=== PATIENT | male | born 1980 | race Caucasian/White ===

== ENCOUNTER 2017-02-26 21:04 | Emergency (ER) | payer SELFPAY ==
[~2017-02-26 21:04] MED LIST: LORA-434 PO; ONDA4TAB7 PO; PANT40TA3 PO; TEMA15CA6 PO
[2017-02-26 22:27] LABS: BASO # 0.1 x10^3/uL (0.0-0.2); BASO % 1 % (0-3); EOS # 0.1 x10^3/uL (0.0-0.7); EOS % 1 % (0-3); HEMATOCRIT 35.6 % (39.0-53.0); HEMOGLOBIN 11.5 g/dL (13.0-17.5); LYMPH # 1.6 x10^3/uL (1.0-4.8); LYMPH % 19 % (24-48); MEAN CORPUSCULAR HEMOGLOBIN 26 pg (25-35); MEAN CORPUSCULAR HGB CONC 32 g/dL (31-37); MEAN CORPUSCULAR VOLUME 79 fL (79-100); MONO % 11 % (0-9); NEUT # 6.1 x10^3uL (1.8-7.7); NEUT % 68 % (31-73); PLATELET COUNT 223 x10^3/uL (140-400); RED BLOOD COUNT 4.51 x10^6/uL (4.30-5.70); RED CELL DISTRIBUTION WIDTH 20.7 % (11.5-14.5); WHITE BLOOD COUNT 8.9 x10^3/uL (4.0-11.0)
[2017-02-26] MEDS ORDERED: IV NORMAL SALINE 1,000ML 1,000 ML IV SCH (22:30)
[2017-02-26 22:35] LABS: AMPHETAMINE/METHAMPHETAMINE NEG (NEG); BARBITURATES NEG (NEG); BENZODIAZEPINES NEG (NEG); CANNABINOIDS POS (NEG); COCAINE NEG (NEG); METHADONE NEG (NEG); OPIATES NEG (NEG); PHENCYCLIDINE NEG (NEG)
[2017-02-26 22:38] LABS: ALBUMIN 3.5 g/dL (3.4-5.0); DIRECT BILIRUBIN 0.2 mg/dL (0.0-0.2); GFR 84.5; MAGNESIUM 1.3 mg/dL (1.8-2.4); POTASSIUM 3.3 mmol/L (3.5-5.1); TOTAL BILIRUBIN 0.7 mg/dL (0.2-1.0); TOTAL PROTEIN 8.4 g/dL (6.4-8.2)
[2017-02-26 22:55] LABS: BILIRUBIN,URINE NEG (NEG); CLARITY,URINE CLEAR; COLOR,URINE YELLOW; GLUCOSE,URINE NEG (NEG); NITRITE,URINE NEG (NEG); UROBILINOGEN,URINE 2 mg/dL (0.2 mg/dL)
[2017-02-26 22:56] LABS: BACTERIA,URINE FEW /HPF (0-FEW); SQUAMOUS EPITHELIAL CELL,UR MANY /LPF; YEAST,URINE PRESENT /HPF
--- NOTE | 2017-02-26 23:02 | RAD ---
CT HEAD PQRS STATEMENT: One or more of the following in the visualized dose reduction techniques were utilized for this study: 1. Automatic exposure control, 2. Adjustment of the mA and/or kV according to patient size, 3. Use of iterative reconstruction technique INDICATION: 766185.001 Seizure activity, loss of consciousness, weakness. No priors. TECHNIQUE: 5 mm contiguous axial images were obtained from the skull base to the vertex in both bone and soft tissue algorithm. FINDINGS: No abnormal attenuation within the brain parenchyma. No evidence of intracranial hemorrhage. No extra-axial fluid collections. No mass effect or midline shift. Ventricular size is appropriate. Basal cisterns are patent. No fractures identified.Guzman-white differentiation is preserved.Globes and orbits are within normal limits. Paranasal sinuses and mastoid air cells are clear. IMPRESSION: No acute intracranial abnormality. Electronically signed by: Israel Lopez MD (02/26/2017 10:58 PM) [facility]
[2017-02-26 23:12] LABS: ANISOCYTOSIS MOD; PLT ESTIMATE ADEQUATE (ADEQUATE)
[2017-02-26] MEDS ORDERED: LORA2TAB89 PO (23:57)
--- NOTE | 2017-02-26 23:58 | PHYS DOC ---
Past History Past Medical History: Other Past Surgical History: Other Alcohol Use: Occasionally Drug Use: None Adult General Chief Complaint Chief Complaint: SEIZURE HPI HPI Patient is a 36-year-old male who presents with complaint of a seizure episode. Patient was brought to the emergency department accompanied by his father who witnessed the episode. He states that the patient was lying down at rest when suddenly he started having convulsions. Patient has had no previous history of seizures per the patient and patient's father. He states that the convulsion activity lasted possibly up to 10 minutes. He states that he was able to help the patient "come to." He states that he was disoriented but was answering questions. By the time that the father brought the patient to the emergency department the patient was mentating at baseline mental status. Patient has had history of pancreatitis secondary to chronic heavy alcohol use. The patient does admit that he has recently been cutting down on his alcohol consumption over the past few weeks. Patient denies any symptoms of anxiety or agitation at this time. Patient denies any complaints. Review of Systems Review of Systems Constitutional: Denies fever or chills [] Eyes: Denies change in visual acuity, redness, or eye pain [] HENT: Denies nasal congestion or sore throat [] Respiratory: Denies cough or shortness of breath [] Cardiovascular: Denies chest pain or edema [] GI: Denies abdominal pain, nausea, vomiting, bloody stools or diarrhea [] : Denies dysuria or hematuria [] Musculoskeletal: Denies back pain or joint pain [] Integument: Denies rash or skin lesions [] Neurologic: Denies headache, focal weakness or sensory changes [] Current Medications Current Medications Current Medications Medications (Trade) Dose Ordered Sig/Cosmo Start Time Stop Time Status Last Admin Dose Admin Sodium Chloride 1,000 ml @ 1,000 mls/hr Q1H 02/26/17 22:30 02/26/17 23:29 DC 02/26/17 22:44 1,000 MLS/HR Allergies Allergies Allergies Coded Allergies Type Severity Reaction Last Updated Verified amoxicillin Allergy Intermediate 02/17/15 Yes clavulanic acid Allergy Intermediate 02/17/15 Yes I S O L A T I O N *CONTACT* Allergy Unknown 02/22/15 No Physical Exam Physical Exam Constitutional: Alert, afebrile, no acute distress. [] HENT: Normocephalic, atraumatic, bilateral external ears normal, oropharynx moist, no oral exudates, nose normal. [] Eyes: PERRLA, EOMI, conjunctiva normal, no discharge. [] Neck: Normal range of motion, no tenderness, supple, no stridor. [] Cardiovascular:Heart rate regular rhythm, no murmur [] Lungs & Thorax: Bilateral breath sounds clear to auscultation [] Abdomen: Bowel sounds normal, soft, no tenderness, no masses, no pulsatile masses. [] Skin: Warm, dry, no erythema, no rash. [] Back: No tenderness, no CVA tenderness. [] Extremities: No tenderness, no cyanosis, no clubbing, ROM intact, no edema. [] Neurologic: Alert and oriented X 3, normal motor function, normal sensory function, no focal deficits noted. [] Current Patient Data Vital Signs Vital Signs Date Time Temp Pulse Resp B/P (MAP) Pulse Ox O2 Delivery O2 Flow Rate FiO2 02/26/17 21:15 99.2 88 20 100 Room Air Lab Results Laboratory Tests Test 02/26/17 21:25 02/26/17 21:30 Urine Collection Type Unknown Urine Color Yellow Urine Clarity Clear Urine pH 7.0 Urine Specific [place] >=1.030 Urine Protein >100 mg/dl (NEG-TRACE) Urine Glucose (UA) Neg mg/dL (NEG) Urine Ketones (Stick) Neg mg/dL (NEG) Urine Blood Trace (NEG) Urine Nitrite Neg (NEG) Urine Bilirubin Neg (NEG) Urine Urobilinogen Dipstick 2 mg/dL (0.2 mg/dL) Urine Leukocyte Esterase Neg (NEG) Urine RBC 3-5 /HPF (0-2) Urine WBC 11-20 /HPF (0-4) Urine Squamous Epithelial Cells Many /LPF Urine Bacteria Few /HPF (0-FEW) Urine Yeast Present /HPF White Blood Count 8.9 x10^3/uL (4.0-11.0) Red Blood Count 4.51 x10^6/uL (4.30-5.70) Hemoglobin 11.5 g/dL (13.0-17.5) L Hematocrit 35.6 % (39.0-53.0) L Mean Corpuscular Volume 79 fL (79-100) Mean Corpuscular Hemoglobin 26 pg (25-35) Mean Corpuscular Hemoglobin Concent 32 g/dL (31-37) Red Cell Distribution Width 20.7 % (11.5-14.5) H Platelet Count 223 x10^3/uL (140-400) Neutrophils (%) (Auto) 68 % (31-73) Lymphocytes (%) (Auto) 19 % (24-48) L Monocytes (%) (Auto) 11 % (0-9) H Eosinophils (%) (Auto) 1 % (0-3) Basophils (%) (Auto) 1 % (0-3) Neutrophils # (Auto) 6.1 x10^3uL (1.8-7.7) Lymphocytes # (Auto) 1.6 x10^3/uL (1.0-4.8) Monocytes # (Auto) 1.0 x10^3/uL (0.0-1.1) Eosinophils # (Auto) 0.1 x10^3/uL (0.0-0.7) Basophils # (Auto) 0.1 x10^3/uL (0.0-0.2) Platelet Estimate Adequate (ADEQUATE) Anisocytosis Mod Sodium Level 135 mmol/L (136-145) L Potassium Level 3.3 mmol/L (3.5-5.1) L Chloride Level 95 mmol/L (98-107) L Carbon Dioxide Level 26 mmol/L (21-32) Anion Gap 14 (6-14) Blood Urea Nitrogen 8 mg/dL (8-26) Creatinine 1.0 mg/dL (0.7-1.3) Estimated GFR (Cockcroft-Gault) 84.5 Glucose Level 101 mg/dL (70-99) H Calcium Level 9.0 mg/dL (8.5-10.1) Magnesium Level 1.3 mg/dL (1.8-2.4) L Total Bilirubin 0.7 mg/dL (0.2-1.0) Direct Bilirubin 0.2 mg/dL (0.0-0.2) Aspartate Amino Transferase (AST) 24 U/L (15-37) Alanine Aminotransferase (ALT) 18 U/L (16-63) Alkaline Phosphatase 148 U/L (46-116) H Total Protein 8.4 g/dL (6.4-8.2) H Albumin 3.5 g/dL (3.4-5.0) Urine Opiates Screen Neg (NEG) Urine Methadone Screen Neg (NEG) Urine Barbiturates Neg (NEG) Urine Phencyclidine Screen Neg (NEG) Urine Amphetamine/Methamphetamine Neg (NEG) Urine Benzodiazepines Screen Neg (NEG) Urine Cocaine Screen Neg (NEG) Urine Cannabinoids Screen Pos (NEG) Ethyl Alcohol Level < 10 mg/dL (0-10) Urine Ethyl Alcohol Neg (NEG) EKG EKG Not performed [] Radiology/Procedures Radiology/Procedures [address] [address] IMAGING REPORT Signed PATIENT: KELSEY MATIAS ACCOUNT: [id number] : 1980 LOCATION: ER AGE: 36 SEX: M EXAM STATUS: REG ER ORD. PHYSICIAN: RICHAR CARREON MD REASON: seizure PROCEDURE: CT HEAD WO CONTRAST CT HEAD PQRS STATEMENT: One or more of the following in the visualized dose reduction techniques were utilized for this study: 1. Automatic exposure control, 2. Adjustment of the mA and/or kV according to patient size, 3. Use of iterative reconstruction technique INDICATION: 882113.001 Seizure activity, loss of consciousness, weakness. No priors. TECHNIQUE: 5 mm contiguous axial images were obtained from the skull base to the vertex in both bone and soft tissue algorithm. FINDINGS: No abnormal attenuation within the brain parenchyma. No evidence of intracranial hemorrhage. No extra-axial fluid collections. No mass effect or midline shift. Ventricular size is appropriate. Basal cisterns are patent. No fractures identified.Guzman-white differentiation is preserved.Globes and orbits are within normal limits. Paranasal sinuses and mastoid air cells are clear. IMPRESSION: No acute intracranial abnormality. Electronically signed by: Israel Lopez MD (02/26/2017 10:58 PM) [facility] DICTATED AND SIGNED BY: ISRAEL LOPEZ MD DATE: 02/26/17 5770 CC: RICHAR CARREON MD; PCP,NO ~ [] Course & Med Decision Making Course & Med Decision Making Pertinent Labs and Imaging studies reviewed. (See chart for details) Patient's lab workup and imaging in the emergency department were unremarkable. Patient was observed in the emergency department for 2-1/2 hours with no further seizure activity. Spoke with a patient regarding possible causes for seizure including recent decrease in alcohol consumption. Recommended that the patient follow-up with Dr. Moya of neurology in one week for reevaluation and need for outpatient EEG testing. Advised return emergency department for any further seizure activity. Patient voiced understanding and in agreement with treatment plan. Dragon Disclaimer Dragon Disclaimer This chart was dictated in whole or in part using Voice Recognition software in a busy, high-work load, and often noisy Emergency Department environment. It may contain unintended and wholly unrecognized errors or omissions. Departure Departure: Impression: Primary Impression: Seizure Disposition: HOME, SELF-CARE Condition: GOOD Referrals: PCPMEET (PCP) Norm MOYA MD Patient Instructions: Seizure, Adult Additional Instructions: Your lab work showed no significant abnormalities today. The cause of your seizure episode is not clear at this time. It is recommended that you follow-up with Dr. Moya of neurology in one week for evaluation and EEG testing. Return to the emergency department for any additional seizure episodes. Scripts Lorazepam (ATIVAN) 2 Mg Tablet 2 MG PO TID Y for ANXIETY / AGITATION, #30 TAB Prov: RICHAR CARREON MD 02/26/17 RICHAR CARREON MD Feb 26, 2017 23:58
[2017-02-27 00:15] VITALS: BP 138/91
== END 2017-02-27 00:15 | disposition home or self-care (01) ==
LOC: ER 21:04
DX: R56.9 Unspecified convulsions (principal); Z88.1 Allergy status to other antibiotic agents; Z91.041 Radiographic dye allergy status
CPT/HCPCS: 36415; 70450; 80048; 80076; 80305; 80320; 81001; 83735; 85008; 85027; 87086; 96360; G0480; G0481; 99285-25; J7030

== ENCOUNTER 2017-03-07 13:47 | Emergency (ER) | payer SELFPAY ==
[~2017-03-07 13:47] MED LIST changes: +LORA2TAB89 PO
[2017-03-07 14:25] VITALS: BP 119/84
--- NOTE | 2017-03-07 14:27 | PHYS DOC ---
Past History Past Medical History: Alcoholism, Pancreatitis Past Surgical History: No Surgical History Alcohol Use: Heavy Drug Use: None Adult General Chief Complaint Chief Complaint: SEIZURE HPI HPI Patient is a 36 year old M who presents with a seizure. This seizure was not witnessed. Enrique states that he is unsure of any details regarding the seizure. He states that afterwards he did feel muscle soreness and mild fatigue. He did have have any injury. He is a daily drinker of about 1-2 pints of liquor. His last drink was 1 pint last night. This event happened around noon, approximally 2hrs prior to arrival. He did have a witnessed seizure about 1 week ago which was his first. He was seen in the ED with a thorough work up that was negative. He was advised to follow up with neurology which he has not been able to do a yet. He has not called to make an appointment. Review of Systems Review of Systems Constitutional: Denies fever or chills [] Eyes: Denies change in visual acuity, redness, or eye pain [] HENT: Denies nasal congestion or sore throat [] Respiratory: Denies cough or shortness of breath [] Cardiovascular: No additional information not addressed in HPI [] GI: Denies abdominal pain, nausea, vomiting, bloody stools or diarrhea [] : Denies dysuria or hematuria [] Musculoskeletal: Denies back pain or joint pain [] Integument: Denies rash or skin lesions [] Neurologic: Denies headache, focal weakness or sensory changes [] Endocrine: Denies polyuria or polydipsia [] Family History Family History Paternal Uncle has seizure disorder Current Medications Current Medications none Allergies Allergies Coded Allergies Type Severity Reaction Last Updated Verified amoxicillin Allergy Intermediate 02/17/15 Yes clavulanic acid Allergy Intermediate 02/17/15 Yes I S O L A T I O N *CONTACT* Allergy Unknown 02/22/15 No Physical Exam Physical Exam Constitutional: Well developed, well nourished, no acute distress, non-toxic appearance. [] HENT: Normocephalic, atraumatic, bilateral external ears normal, oropharynx moist, no oral exudates, nose normal. [] Eyes: PERRLA, EOMI, conjunctiva normal, no discharge. [] Neck: Normal range of motion, no tenderness, supple, no stridor. [] Cardiovascular:Heart rate regular rhythm, no murmur [] Lungs & Thorax: Bilateral breath sounds clear to auscultation [] Abdomen: Bowel sounds normal, soft, no tenderness, no masses, no pulsatile masses. [] Skin: Warm, dry, no erythema, no rash. [] Back: No tenderness, no CVA tenderness. [] Extremities: No tenderness, no cyanosis, no clubbing, ROM intact, no edema. [] Neurologic: Alert and oriented X 3, normal motor function, normal sensory function, no focal deficits noted. [] Psychologic: Affect normal, judgement normal, mood normal. [] Current Patient Data Vital Signs Vital Signs Date Time Temp Pulse Resp B/P (MAP) Pulse Ox O2 Delivery O2 Flow Rate FiO2 03/07/17 14:00 97.8 87 20 100 Room Air Lab Results Labs were reviewed Radiology/Procedures Radiology/Procedures Imaging was reviewed Course & Med Decision Making Course & Med Decision Making Pertinent Labs and Imaging studies reviewed. (See chart for details) Labs and imaging were declined. Enrique states that he does not have insurance and can not afford it. He was advised that finances should not be a concern when it comes to his health. He verbalizes understanding and continues to decline any work up. His father was present Dragon Disclaimer Dragon Disclaimer This chart was dictated in whole or in part using Voice Recognition software in a busy, high-work load, and often noisy Emergency Department environment. It may contain unintended and wholly unrecognized errors or omissions. Departure Departure: Impression: Primary Impression: Seizure Disposition: 01 HOME, SELF-CARE Referrals: PCP,NO (PCP) Patient Instructions: Seizure, Adult Additional Instructions: Enrique was seen in the ED for a possible seizure. No emergency medical condition was found during the history and physical exam. He was advised to follow up with his primary care doctor or neurologist as soon as possible for further management. He was also advised to return to the ED if he develops new or worsening symptoms. NURIS VILLALOBOS MD Mar 07, 2017 14:27
== END 2017-03-07 14:35 | disposition home or self-care (01) ==
LOC: ER 13:47
DX: R56.9 Unspecified convulsions (principal); F10.20 Alcohol dependence, uncomplicated; Z88.1 Allergy status to other antibiotic agents; Z91.041 Radiographic dye allergy status
CPT/HCPCS: 99281

== ENCOUNTER 2017-03-07 19:27 | Inpatient (IN) | payer SELFPAY ==
[~2017-03-07] VITALS: Ht 167.6 cm; Wt 61.9 kg
[2017-03-07] MEDS ORDERED: IV NORMAL SALINE 1,000ML 1,000 ML IV ONE (19:45)
[2017-03-07 20:01] LABS: HEMOGLOBIN ISTAT 12.6 gm/dL
[2017-03-07] MEDS ORDERED: ACETAMINOPHEN 325 MG TABLET PO PRN (21:15)
[2017-03-07] MEDS ORDERED: MORPHINE SULFATE 2 MG/ML DISP.SYRIN. IV PRN (21:15)
[2017-03-07] MEDS ORDERED: ONDANSETRON PF 4 MG/2 ML VIAL. IV PRN (21:15)
[2017-03-07] MEDS ORDERED: cloNIDine HCL 0.1 MG TABLET PO PRN (21:15)
[2017-03-07 21:35] VITALS: BP 145/93
--- NOTE | 2017-03-07 21:35 | NUR ---
Pt was admitted to icu bed 5, admitting diagnosis is etoh withdrawl with seizures. admission process and assessment completed, pt and family oriented to icu unit and policies. The following information was found during admission assessment: the patient normally drinks 2 pints of vodka daily. He decided to stop drinking recently, he cut down abruptly, current home situation is a one bedroom apt, his parents, himself and his son all staying there. His father is also a alcoholic and question of substance abuse, mother states she only has anxiety and panic disorders. Both parents smelled of cigarettes and alcohol.
[2017-03-07] MEDS ORDERED: MVI, ADULT NO.4 WITH VIT K 10 ML, THIAMINE 100 MG, FOLIC ACID 1 MG in IV NORMAL SALINE ... IV SCH ×4 (22:00)
[2017-03-07 22:25] LABS: BASO # 0.1 x10^3/uL (0.0-0.2); BASO % 1 % (0-3); EOS # 0.2 x10^3/uL (0.0-0.7); EOS % 1 % (0-3); HEMATOCRIT 30.2 % (39.0-53.0); HEMOGLOBIN 9.7 g/dL (13.0-17.5); LYMPH # 1.6 x10^3/uL (1.0-4.8); LYMPH % 12 % (24-48); MEAN CORPUSCULAR HEMOGLOBIN 25 pg (25-35); MEAN CORPUSCULAR HGB CONC 32 g/dL (31-37); MEAN CORPUSCULAR VOLUME 79 fL (79-100); MONO % 8 % (0-9); NEUT # 10.6 x10^3uL (1.8-7.7); NEUT % 79 % (31-73); PLATELET COUNT 208 x10^3/uL (140-400); RED BLOOD COUNT 3.84 x10^6/uL (4.30-5.70); RED CELL DISTRIBUTION WIDTH 18.9 % (11.5-14.5); WHITE BLOOD COUNT 13.6 x10^3/uL (4.0-11.0)
[2017-03-07 22:26] LABS: BARBITURATES NEG (NEG); BENZODIAZEPINES NEG (NEG); CANNABINOIDS POS (NEG); COCAINE NEG (NEG); METHADONE NEG (NEG); OPIATES NEG (NEG); PHENCYCLIDINE NEG (NEG)
[2017-03-07 22:27] LABS: AMPHETAMINE/METHAMPHETAMINE NEG (NEG)
[2017-03-07 22:30] LABS: ALBUMIN 3.2 g/dL (3.4-5.0); ALBUMIN/GLOBULIN RATIO 0.8 (1.0-1.7); CALCIUM 8.3 mg/dL (8.5-10.1); CREATININE 0.7 mg/dL (0.7-1.3); GFR 127.6; MAGNESIUM 1.5 mg/dL (1.8-2.4); POTASSIUM 3.9 mmol/L (3.5-5.1); TOTAL BILIRUBIN 0.8 mg/dL (0.2-1.0); TOTAL PROTEIN 7.2 g/dL (6.4-8.2)
[2017-03-07 22:37] LABS: BACTERIA,URINE 0 /HPF (0-FEW); BILIRUBIN,URINE NEG (NEG); CLARITY,URINE CLEAR; COLOR,URINE YELLOW; GLUCOSE,URINE NEG (NEG); NITRITE,URINE NEG (NEG); SQUAMOUS EPITHELIAL CELL,UR FEW /LPF; UROBILINOGEN,URINE 1 mg/dL (0.2 mg/dL)
[2017-03-07 22:38] LABS: HYALINE CASTS, URINE FEW /HPF
[2017-03-07] MEDS ORDERED: chlordiazePOXIDE HCL 25 MG CAPSULE PO PRN ×2 (23:00)
[2017-03-07] MEDS ORDERED: diphenhydrAMINE 50 MG/ML VIAL IVP PRN (23:00)
[2017-03-07] MEDS ORDERED: HALOPERIDOL LACT 5 MG/ML VIAL. IM PRN (23:00)
[2017-03-07 23:08] VITALS: BP 127/87
[2017-03-07] MEDS: IV NORMAL SALINE 1,000ML 1,000 ML IV SCH (23:09)
[2017-03-07] MEDS ORDERED: MAGNESIUM SULFATE 2GM 50 ML IV ONE (23:30)
[2017-03-08] VITALS (15 sets, daily range): BP systolic 103–128; BP diastolic 74–90
--- NOTE | 2017-03-08 01:22 | PHYS DOC ---
Past History Past Medical History: Alcoholism, Pancreatitis Past Surgical History: No Surgical History Alcohol Use: Heavy Drug Use: None Adult General Chief Complaint Chief Complaint: SEIZURE HPI HPI Patient is a 36 year old male who presents with seizure. Patient presents via EMS from home, reportedly father witnessed episode of staring into space & shaking, unknown duration, patient minimally responsive. Denies tongue biting, bowel/bladder incontinence, fall or injury. He was postictal when EMS arrived. Patient seen here earlier today after unwitnessed seizure. He is a chronic daily drinker usually 1-2 pints of hard liquor daily, last drink was 24 hours ago. last week he had a seizure after attempting to detox from EtOH. At that time he had head CT & ER evaluation, ultimately discharged home with neurology follow up. Denies use of drugs. Review of Systems Review of Systems Constitutional: Denies fever or chills Eyes: Denies change in visual acuity HENT: Denies nasal congestion or sore throat Respiratory: Denies cough or shortness of breath Cardiovascular: Denies chest pain or edema GI: Denies abdominal pain, nausea, vomiting Musculoskeletal: Denies back pain or joint pain Integument: Denies rash or skin lesions Neurologic: Reports seizure. Denies headache, focal weakness or sensory changes Current Medications Current Medications Current Medications Medications (Trade) Dose Ordered Sig/Cosmo Start Time Stop Time Status Last Admin Dose Admin Acetaminophen (Tylenol) 650 mg PRN Q4HRS PRN 03/07/17 21:15 03/08/17 21:14 Clonidine HCl (Catapres) 0.1 mg PRN Q1HR PRN 03/07/17 21:15 Diazepam (Valium) 10 mg PRN Q5MIN PRN 03/07/17 21:15 Morphine Sulfate (Morphine 2mg Syringe) 2 mg PRN Q2HR PRN 03/07/17 21:15 03/08/17 21:14 Ondansetron HCl (Zofran) 4 mg PRN Q4HRS PRN 03/07/17 21:15 03/08/17 21:14 Sodium Chloride 1,000 ml @ 125 mls/hr Q8H 03/07/17 21:14 03/08/17 21:13 03/07/17 23:09 125 MLS/HR Allergies Allergies Allergies Coded Allergies Type Severity Reaction Last Updated Verified amoxicillin Allergy Intermediate 02/17/15 Yes clavulanic acid Allergy Intermediate 02/17/15 Yes I S O L A T I O N *CONTACT* Allergy Unknown 02/22/15 No Physical Exam Physical Exam Constitutional: Well developed, well nourished, no acute distress, non-toxic appearance. HENT: Normocephalic, atraumatic, bilateral external ears normal, oropharynx moist, nose normal. No bite georges to tongue. Eyes: PERRLA, EOMI, conjunctiva normal, no discharge. Neck: supple, no stridor. No meningismus or C-spine tenderness. Cardiovascular: Tachycardic, regular, no murmurs, no edema. Lungs & Thorax: LCTAB, no wheezing, no respiratory distress. Abdomen: soft, nontender, nondistended. Skin: Warm, dry, no erythema, no rash. Back: No tenderness. Extremities: No tenderness, no edema. Neurologic: Alert and oriented X 3, cranial nerves II through XII grossly intact , symmetric strength and sensation to upper and lower extremities, no focal deficits noted. Psychologic: Flat affect Current Patient Data Vital Signs Vital Signs Date Time Temp Pulse Resp B/P (MAP) Pulse Ox O2 Delivery O2 Flow Rate FiO2 03/08/17 01:10 81 18 120/84 (96) Room Air 03/07/17 21:35 98.4 100 Lab Results Laboratory Tests Test 03/07/17 19:55 03/07/17 21:50 03/07/17 22:02 POC Hemoglobin 12.6 gm/dL POC Hematocrit 37 % POC Sodium 131 mmol/L (135-145) L POC Potassium 4.0 mmol/L (3.5-5.0) POC Chloride 94 mmol/L (98-110) L POC Total CO2 22 mmol/L (23-32) L Anion Gap 20 mmol/L (6-14) H 7 (6-14) POC Blood Urea Nitrogen 4 mg/dL (8-26) L POC Creatinine 0.5 mg/dL (0.5-1.4) Glucose Level 88 mg/dL (60-99) 83 mg/dL (70-99) POC Ionized Calcium ([place]) 1.16 mmol/L (1.13-1.32) Urine Collection Type Unknown Urine Color Yellow Urine Clarity Clear Urine pH 7.5 Urine Specific [place] 1.015 Urine Protein Trace (NEG-TRACE) Urine Glucose (UA) Neg mg/dL (NEG) Urine Ketones (Stick) Neg mg/dL (NEG) Urine Blood Trace (NEG) Urine Nitrite Neg (NEG) Urine Bilirubin Neg (NEG) Urine Urobilinogen Dipstick 1 mg/dL (0.2 mg/dL) Urine Leukocyte Esterase Neg (NEG) Urine RBC 1-2 /HPF (0-2) Urine WBC 1-4 /HPF (0-4) Urine Squamous Epithelial Cells Few /LPF Urine Bacteria 0 /HPF (0-FEW) Urine Hyaline Casts Few /HPF Urine Mucus Mod /LPF Urine Opiates Screen Neg (NEG) Urine Methadone Screen Neg (NEG) Urine Barbiturates Neg (NEG) Urine Phencyclidine Screen Neg (NEG) Urine Amphetamine/Methamphetamine Neg (NEG) Urine Benzodiazepines Screen Neg (NEG) Urine Cocaine Screen Neg (NEG) Urine Cannabinoids Screen Pos (NEG) Urine Ethyl Alcohol Neg (NEG) White Blood Count 13.6 x10^3/uL (4.0-11.0) H Red Blood Count 3.84 x10^6/uL (4.30-5.70) L Hemoglobin 9.7 g/dL (13.0-17.5) L Hematocrit 30.2 % (39.0-53.0) L Mean Corpuscular Volume 79 fL (79-100) Mean Corpuscular Hemoglobin 25 pg (25-35) Mean Corpuscular Hemoglobin Concent 32 g/dL (31-37) Red Cell Distribution Width 18.9 % (11.5-14.5) H Platelet Count 208 x10^3/uL (140-400) Neutrophils (%) (Auto) 79 % (31-73) H Lymphocytes (%) (Auto) 12 % (24-48) L Monocytes (%) (Auto) 8 % (0-9) Eosinophils (%) (Auto) 1 % (0-3) Basophils (%) (Auto) 1 % (0-3) Neutrophils # (Auto) 10.6 x10^3uL (1.8-7.7) H Lymphocytes # (Auto) 1.6 x10^3/uL (1.0-4.8) Monocytes # (Auto) 1.0 x10^3/uL (0.0-1.1) Eosinophils # (Auto) 0.2 x10^3/uL (0.0-0.7) Basophils # (Auto) 0.1 x10^3/uL (0.0-0.2) Sodium Level 130 mmol/L (136-145) L Potassium Level 3.9 mmol/L (3.5-5.1) Chloride Level 95 mmol/L (98-107) L Carbon Dioxide Level 28 mmol/L (21-32) Blood Urea Nitrogen 5 mg/dL (8-26) L Creatinine 0.7 mg/dL (0.7-1.3) Estimated GFR (Cockcroft-Gault) 127.6 BUN/Creatinine Ratio 7 (6-20) Calcium Level 8.3 mg/dL (8.5-10.1) L Magnesium Level 1.5 mg/dL (1.8-2.4) L Total Bilirubin 0.8 mg/dL (0.2-1.0) Aspartate Amino Transferase (AST) 17 U/L (15-37) Alanine Aminotransferase (ALT) 19 U/L (16-63) Alkaline Phosphatase 97 U/L (46-116) Total Protein 7.2 g/dL (6.4-8.2) Albumin 3.2 g/dL (3.4-5.0) L Albumin/Globulin Ratio 0.8 (1.0-1.7) L Ethyl Alcohol Level < 10 mg/dL (0-10) Radiology/Procedures Radiology/Procedures Reviewed imaging from initial presentation on 02/26. PROCEDURE: CT HEAD WO CONTRAST CT HEAD PQRS STATEMENT: One or more of the following in the visualized dose reduction techniques were utilized for this study: 1. Automatic exposure control, 2. Adjustment of the mA and/or kV according to patient size, 3. Use of iterative reconstruction technique INDICATION: 965715.001 Seizure activity, loss of consciousness, weakness. No priors. TECHNIQUE: 5 mm contiguous axial images were obtained from the skull base to the vertex in both bone and soft tissue algorithm. FINDINGS: No abnormal attenuation within the brain parenchyma. No evidence of intracranial hemorrhage. No extra-axial fluid collections. No mass effect or midline shift. Ventricular size is appropriate. Basal cisterns are patent. No fractures identified.Guzman-white differentiation is preserved.Globes and orbits are within normal limits. Paranasal sinuses and mastoid air cells are clear. IMPRESSION: No acute intracranial abnormality. Electronically signed by: Israel Lopez MD (02/26/2017 10:58 PM) [facility] DICTATED AND SIGNED BY: ISRAEL LOPEZ MD DATE: 02/26/17 2256[] Course & Med Decision Making Course & Med Decision Making Pertinent Labs and Imaging studies reviewed. (See chart for details) The patient presents after seizure, clinical history suggesting alcohol withdrawal. Tachycardic upon arrival, not hypertensive. Gave Valium and IV fluids. Obtained a basic metabolic panel. Patient initially refusing admission or consideration of detox. His parents arrived and ultimately he agreed that he would be admitted to the hospital if we recommended. I discussed with Dr. Song who agrees to accept for admission to the ICU. Will continue withdrawal treatment protocol. Discussed with Dr. Torres of neurology who recommends routine EEG in the AM, no need to start antiepileptic treatment at this time. The patient is being admitted in stable condition. [] Dragon Disclaimer Dragon Disclaimer This chart was dictated in whole or in part using Voice Recognition software in a busy, high-work load, and often noisy Emergency Department environment. It may contain unintended and wholly unrecognized errors or omissions. Departure Departure: Impression: Primary Impression: Alcohol withdrawal Additional Impression: Seizure Disposition: ADMITTED INPATIENT Admitting Physician: Ever Song Condition: STABLE Referrals: PCP,NO (PCP) Problem Qualifiers BJ JEAN BAPTISTE MD Mar 08, 2017 01:22
[2017-03-08] MEDS: IV NORMAL SALINE 1,000ML 1,000 ML IV SCH ×2 (04:12→11:10)
--- NOTE | 2017-03-08 06:00 | NUR ---
Patient has done well tonight. He has been up to the bathroom to void several times tonight. This morning he has had 3 episodes of gas and some diarrhea. Pt's only other complaint is a mild headache. On the CIWA scale, he had some mild anxiety upon arrival to unit. He has not required any medications tonight. No seizure activity witnessed. Spoke with mother, Didi Webb on phone this morning for update.
[2017-03-08 06:10] LABS: BASO # 0.1 x10^3/uL (0.0-0.2); BASO % 1 % (0-3); EOS # 0.3 x10^3/uL (0.0-0.7); EOS % 4 % (0-3); HEMATOCRIT 30.4 % (39.0-53.0); HEMOGLOBIN 9.8 g/dL (13.0-17.5); LYMPH # 2.1 x10^3/uL (1.0-4.8); LYMPH % 22 % (24-48); MEAN CORPUSCULAR HEMOGLOBIN 25 pg (25-35); MEAN CORPUSCULAR HGB CONC 32 g/dL (31-37); MEAN CORPUSCULAR VOLUME 79 fL (79-100); MONO # 1.3 x10^3/uL (0.0-1.1); MONO % 14 % (0-9); NEUT # 5.8 x10^3uL (1.8-7.7); NEUT % 60 % (31-73); PLATELET COUNT 209 x10^3/uL (140-400); RED BLOOD COUNT 3.85 x10^6/uL (4.30-5.70); RED CELL DISTRIBUTION WIDTH 19.4 % (11.5-14.5); WHITE BLOOD COUNT 9.7 x10^3/uL (4.0-11.0)
[2017-03-08 06:13] LABS: CALCIUM 8.1 mg/dL (8.5-10.1); CREATININE 0.7 mg/dL (0.7-1.3); GFR 127.6; POTASSIUM 3.6 mmol/L (3.5-5.1)
--- NOTE | 2017-03-08 08:05 | NUR ---
Spoke with Dr. Torres in regards to patients EEG, states it is best if we do outpatient EEG. Will set up appt of outpatient services.
[2017-03-08] MEDS ORDERED: IBUPROFEN 600 MG TABLET. PO PRN (09:00)
[2017-03-08] MEDS ORDERED: THIAMINE 100 MG in IV NORMAL SALINE 50ML 50 ML IV SCH (09:00)
--- NOTE | 2017-03-08 09:19 | NUR ---
Dr. Torres here at this time, states to set up outpatient EEG as soon as possible. Pt stable at this time.
--- NOTE | 2017-03-08 10:00 | NUR ---
Ibuprofen given due to complaints of right foot injury. States he injuried his foot during a seizure episode. Right big toe is slightly swollen and purple. Will discuss with Dr. Song in regards to patients foot.
--- NOTE | 2017-03-08 14:51 | NUR ---
Pt discharged at this time, belongings with patient. Father here to transport. Foot xray completed. Will notify if with results.
--- NOTE | 2017-03-08 14:54 | RAD ---
EXAM: Right foot 3 views. HISTORY: Right medial foot pain after injury. COMPARISON: 02/09/2007. FINDINGS: There is a nondisplaced oblique fracture of the 1st proximal phalanx. There is mild hallux valgus. Joint spaces are maintained. IMPRESSION: 1. Nondisplaced oblique fracture of the 1st proximal phalanx.
--- NOTE | 2017-03-08 15:06 | SSS ---
ADMIT DATE: 03/08/2017 HISTORY OF PRESENT ILLNESS: The patient is a 36-year-old male patient who came to the Emergency Room by emergency medical services from home. Apparently, his father witnessed an episode of staring into space and shaking of unknown duration. By the time he arrived to the Emergency Room, he was minimally responsive; however, there was no evidence of tongue biting, bowel or bladder incontinence, fall or injury, although when I questioned him, he did complain that he hit his right foot and in fact his big toe is swollen and bruised and he has a limp when he attempts to walk. He apparently was seen in the Emergency Room earlier on the day for after an unwitnessed seizure. He is a chronic daily drinker, usually takes 1-2 pints of hard liquor daily and his last drink was about 24 hours prior to arrival to the Emergency Room. Last week, he has had a seizure after attempting to detox from alcohol as his son is coming to be with him this summer time and he tried to cut down on his alcohol drinking. He apparently had had a CT scan and was evaluated again in the Emergency Room and ultimately discharged home with the Neurology followup. As he has had multiple episodes of seizures, a decision was made to admit him for observation in the ICU and to consult Dr. Torres for further evaluation and treatment. PAST MEDICAL HISTORY: Significant for alcoholism and an episode of alcohol-induced pancreatitis. He has had a cyst removed from right forehead when he was younger. FAMILY HISTORY: Unremarkable. SOCIAL HISTORY: He is , has 1 son. He smokes a pack a day. Drinks anything from 6 packs of beer to a fifth of vodka. 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 ALLERGIES: He has no known drug allergies. CURRENT MEDICATIONS: He is not currently on any medication. FAMILY HISTORY: Unremarkable. His father is still alive at age of 57, has no known medical problems. Mother is alive at age of 55 and has no known medical problem. PHYSICAL EXAMINATION: GENERAL: On arrival to the Emergency Room, he was lethargic, but arousable, slightly pale, but no jaundice, cyanosis, lymphadenopathy or thyromegaly. No jugular venous distention. No lower limb edema. VITAL SIGNS: His heart rate was 103, blood pressure was 128/98, temperature was 98.1, respiratory rate was 18 and oxygen saturation was 97% on room air. HEENT: Showed normocephalic, atraumatic. NECK: Supple. HEART: Showed normal first and second heart sounds with no gallop, rub or murmur. CHEST: Clear to auscultation. No crepitation or rhonchi. ABDOMEN: Distended, soft, nontender. No guarding or rigidity. No organomegaly. Hernial orifices intact. Bowel sounds normal. NEUROLOGIC: Lethargic but arousable. All cranial nerves intact. EXTREMITIES: He moves extremities without difficulty. LABORATORY DATA: He has had lab work done in the Emergency Room which showed his white cell count to be 13,600, hemoglobin 9.7, hematocrit 30, MCV 79, and platelet count 208,000. His chemistry showed a serum sodium 131, potassium 4, chloride 94, bicarbonate 28, anion gap of 20, BUN 4, creatinine was 0.5, estimated GFR was 88 mL per minute. His glucose was 88, calcium was 8.3, magnesium was 1.5. Total bilirubin, AST, ALT, alkaline phosphatase were normal. Total protein was 7.2, albumin 3.2. His urinalysis was essentially unremarkable and urine tox screen was positive for cannabinoids. He was admitted to the ICU, was started on alcohol withdrawal protocol, although according to nursing staff did not require any treatment, did not display any evidence of delirium tremens. He was seen in consultation by Dr. Torres who recommended that the patient can be safely discharged to follow him as an outpatient to do an EEG as an outpatient and no treatment was recommended for seizures. His repeat labs showed that his white cell count is down to 9700, hemoglobin 9.8, hematocrit 30.4, MCV 79 and platelet count of 209,000 with normal manual differential. His chemistry showed a serum sodium 135, potassium 3.6, chloride 101, bicarbonate 24, anion gap of 10, BUN 5, creatinine 0.7, estimated GFR was 127 mL per minute. His glucose was 78 and calcium was 1.1. Magnesium was 1.9. FINAL DISCHARGE DIAGNOSES: Alcohol withdrawal seizures and chronic alcohol abuse. He did have also hyponatremia that has resolved. Serum sodium has risen from 131 to 135. Hypomagnesemia, resolved. His serum magnesium went up from 1.5 to 1.9. The patient was counseled about alcoholism and was advised to follow up with Dr. Torres for an outpatient EEG. LA[place] NEUMANN MD DR: SEAMUS/xavi JOB#: [id number] / [id number]
--- NOTE | 2017-03-08 16:08 | NUR ---
Notified patients family of patients results. Pts phone number was not working at this time. Explained patient will need to see a specialist due to fracture of 1st phalanx.
--- NOTE | 2017-03-09 02:31 | ACF ---
Admit Criteria Forms Admit Criteria Forms Admit Criteria Forms ALCOHOL AND PSYCHOACTIVE SUBSTANCE WITHDRAWAL Clinical Indications for Inpatient Care (Place ' X' for any and all applicable criteria): Ongoing inpatient care may be indicated for substance withdrawal[B][C] with ANY ONE of the following(1)(2)(3)(4)(21): [ ]I. Delirium due to alcohol or sedative[D] withdrawal is present. [X]II. Marked signs of withdrawal are present as indicated by ANY ONE of the following(15)(22)(23) [ ]a) Heart rate greater than 120 beats per minute is present. [ ]b) Severe vomiting is present (eg, precludes maintenance of oral hydration). [ ]c) Grossly visible tremor is present. [ ]d) Profuse perspiration is present. [ ]e) Temperature greater than 101 degrees F (38.3 degrees C) is present. [X]f) Other signs of severe withdrawal are present (eg, Altered mental status ) [ ]g) Severe withdrawal identified by standardized assessment score[A] [X]III. Signs of withdrawal that require continued inpatient treatment as indicated by ANY ONE of the following(15)(22)(23): [ ]a) Inadequate response to pharmacotherapy (eg, benzodiazepines) [X]b) Outpatient or lower level of care is not feasible or appropriate (eg, unavailable or inappropriate to patient condition or treatment history). [ ]IV. Withdrawal signs with high-risk indicator are present as manifested by ALL of the following[A](15)(22)(23) [ ]a) Signs of withdrawal are present as indicated by ANY ONE of the following: [ ]i. Tachycardia is present. [ ]ii. Nausea or vomiting is present. [ ]iii. Tremor is present. [ ]iv. Increased perspiration is present. [ ]v. Other signs of withdrawal are present. [ ]vi. Withdrawal identified by standardized assessment score [A] [ ]b) Elevated risk due to historical or comorbid factor is present as indicated by ANY ONE of the following: [ ]i. History of delirium due to withdrawal is present. [ ]ii. History of seizures due to withdrawal is present.[E] [ ]iii. Intrinsic seizure disorder (epilepsy) is present. [ ]iv. Patient is . [ ]v. Other significant medical history (eg, severe cardiac disease) is present, which is assessed to be at risk for destabilization due to withdrawal. [ ]V. Serious electrolyte abnormalities (eg, hyponatremia, hypokalemia, hypophosphatemia) requiring correction performable only in inpatient setting(6)(25) [ ]. Severe hypoglycemia requiring glucose infusions performable only in inpatient setting(6) [ ]VII. Drug toxicity or instability, such as Altered mental status, respiratory depression, or arrhythmias, that requires inpatient care [ ]VIII. Danger judged unmanageable at lower level of care because of ANY ONE of the following [ ]a) Danger to self [ ]b) Danger to others [ ]c) Grave disability (eg, inability to perform self-care necessary at lower level of care) The original [employer] content created by [employer] has been revised. The portions of the content which have been revised are identified through the use of italic text or in bold. [facility] has neither reviewed nor approved the modified material. All other unmodified content is copyright [employer]. Please see references footnoted in the original [employer] edition 2016 ANGELICA ACOSTA Mar 09, 2017 02:31
== END 2017-03-08 14:40 | disposition home or self-care (01) | DRG 897 ==
LOC: ER 19:27 → ICU 21:16
PROVIDERS: ADMIT Internal Medicine; ATTEND Internal Medicine
DX: F10.239 Alcohol dependence with withdrawal, unspecified (principal); E87.1 Hypo-osmolality and hyponatremia; E83.42 Hypomagnesemia; F17.210 Nicotine dependence, cigarettes, uncomplicated; R56.9 Unspecified convulsions; Z88.1 Allergy status to other antibiotic agents; Z88.8 Allergy status to other drugs, medicaments and biological substances
CPT/HCPCS: 36415; 73630; 80047; 80048; 80053; 81001; 83735; 85027; 87641; 96361; 96374; G0480; G0481; J3475; 99285-25; J7030

== ENCOUNTER 2017-08-23 10:31 | Inpatient (IN) | payer SELFPAY ==
[~2017-08-23] VITALS: Ht 167.6 cm; Wt 64.9 kg
--- NOTE | 2017-08-23 10:53 | PHYS DOC ---
Past History Past Medical History: Alcoholism, Pancreatitis, Seizure Past Surgical History: No Surgical History Alcohol Use: Heavy Drug Use: None Adult General Chief Complaint Chief Complaint: SEIZURE HPI HPI 36 -year-old male patient brought in by EMS because of seizures. Patient had history of alcohol abuse and previous episodes of seizure did not have any alcohol for the last 4 days because of financial problems and had a witnessed seizure at home with falling on his face and tonic clonic seizure activity that lasted at least for 4 minutes and had postictal condition after his seizure. Patient was alert and oriented at arrival to ER. Patient complains of mild pain in his face without other problem. Patient denies using. Patient had hospitalization 1 year ago with alcohol withdrawal seizure and recommended follow with neurologist but did not follow-up with the neurologist. He is up-to- date with his tetanus immunization. Review of Systems Review of Systems Constitutional: Denies fever or chills [] Eyes: Denies change in visual acuity, redness, or eye pain [] HENT: Denies nasal congestion or sore throat [] Respiratory: Denies cough or shortness of breath [] Cardiovascular: No additional information not addressed in HPI [] GI: Denies abdominal pain, nausea, vomiting, bloody stools or diarrhea [] : Denies dysuria or hematuria [] Musculoskeletal: Denies back pain or joint pain [] Integument: Denies rash or skin lesions [] Neurologic: Denies headache, focal weakness or sensory changes [] Endocrine: Denies polyuria or polydipsia [] All other systems were reviewed and found to be within normal limits, except as documented in this note. Current Medications Current Medications Current Medications Medications (Trade) Dose Ordered Sig/Cosmo Start Time Stop Time Status Last Admin Dose Admin Lorazepam (Ativan) 1 mg 1X ONCE 08/23/17 11:15 08/23/17 11:16 Sodium Chloride 1,000 ml @ 1,000 mls/hr 1X ONCE 08/23/17 11:00 08/23/17 11:59 Allergies Allergies Allergies Coded Allergies Type Severity Reaction Last Updated Verified amoxicillin Allergy Intermediate 02/17/15 Yes clavulanic acid Allergy Intermediate 02/17/15 Yes I S O L A T I O N *CONTACT* Allergy Unknown 02/22/15 No Physical Exam Physical Exam Constitutional: Well developed, well nourished, mild distress, non-toxic appearance. [] HENT: Normocephalic, right cheek contusion without abrasion, bilateral external ears normal, oropharynx moist, no oral exudates, nose normal. [] Eyes: PERRLA, EOMI, conjunctiva normal, no discharge. [] Neck: Immobilized by c-collar by EMS Cardiovascular: Normal sinus rhythm without murmur Lungs & Thorax: Bilateral breath sounds clear to auscultation [] Abdomen: Bowel sounds normal, soft, no tenderness, no masses, no pulsatile masses. [] Skin: Warm, dry, no erythema, no rash. [] Back: No tenderness, no CVA tenderness. [] Extremities: No tenderness, no cyanosis, no clubbing, ROM intact, no edema. [] Neurologic: Alert and oriented X 3, normal motor function, normal sensory function, no focal deficits noted. [] Psychologic: Affect normal, judgement normal, mood normal. [] EKG EKG [Cage interpreted by me. EKG at 1052 showed heart rate of 96, normal sinus rhythm, poor R-wave progress in anteroseptal leads, no acute ST and T wave abnormality] Radiology/Procedures Radiology/Procedures [] Course & Med Decision Making Course & Med Decision Making Pertinent Labs and Imaging studies reviewed. (See chart for details) Evaluation of patient in ER showed 36-year-old male patient brought in by EMS because of our cart withdrawal seizure. Patient was alert and oriented in ER and had c-collar placement that improved after negative CT head, facial bones and cervical spine. Patient had facial contusion without other abnormality in his exam. Dr. Torres on-call neurology was consulted at 1205 and recommended follow-up with his office for EEG and more evaluation. Patient's mother requesting admission because patient had another episode of seizures when he was discharged from hospital last time and had to come back to Hospital again. call person hospitalist Dr. Song accepted the admission at 1211.[] Dragon Disclaimer Dragon Disclaimer This electronic medical record was generated, in whole or in part, using a voice recognition dictation system. Departure Departure: Impression: Primary Impression: Alcohol withdrawal seizure Additional Impressions: Facial contusion Tobacco abuse Tobacco abuse counseling Disposition: 09 ADMITTED INPATIENT (At 1212) Admitting Physician: Ever Song Condition: IMPROVED Referrals: PCP,NO (PCP) Scripts No Active Prescriptions or Reported Meds Problem Qualifiers GLENN DARDEN MD Aug 23, 2017 10:53
[2017-08-23 10:56] LABS: BASO # 0.2 x10^3/uL (0.0-0.2); BASO % 1 % (0-3); EOS # 0.1 x10^3/uL (0.0-0.7); EOS % 1 % (0-3); HEMATOCRIT 33.6 % (39.0-53.0); HEMOGLOBIN 10.6 g/dL (13.0-17.5); LYMPH # 1.4 x10^3/uL (1.0-4.8); LYMPH % 12 % (24-48); MEAN CORPUSCULAR HEMOGLOBIN 25 pg (25-35); MEAN CORPUSCULAR HGB CONC 32 g/dL (31-37); MEAN CORPUSCULAR VOLUME 78 fL (79-100); MONO # 0.9 x10^3/uL (0.0-1.1); MONO % 8 % (0-9); NEUT # 8.8 x10^3uL (1.8-7.7); NEUT % 78 % (31-73); PLATELET COUNT 182 x10^3/uL (140-400); RED BLOOD COUNT 4.34 x10^6/uL (4.30-5.70); WHITE BLOOD COUNT 11.3 x10^3/uL (4.0-11.0)
[2017-08-23] MEDS ORDERED: IV NORMAL SALINE 1,000ML 1,000 ML IV ONE (11:00)
[2017-08-23 11:10] LABS: ALBUMIN 3.7 g/dL (3.4-5.0); CALCIUM 8.8 mg/dL (8.5-10.1); CREATININE 0.9 mg/dL (0.7-1.3); GFR 95.5; POTASSIUM 3.5 mmol/L (3.5-5.1); TOTAL BILIRUBIN 0.8 mg/dL (0.2-1.0); TOTAL PROTEIN 7.4 g/dL (6.4-8.2)
[2017-08-23] MEDS ORDERED: LORazepam 2 MG/ML VIAL IV ONE (11:15)
[2017-08-23 11:18] LABS: PLT ESTIMATE ADEQUATE (ADEQUATE)
[2017-08-23 11:19] LABS: HYPOCHROMIA SLIGHT; OVALOCYTES OCC
[2017-08-23 11:20] LABS: ANISOCYTOSIS MOD; POLYCHROMASIA SLIGHT
[2017-08-23 11:21] LABS: MICROCYTOSIS SLIGHT
--- NOTE | 2017-08-23 11:21 | RAD ---
Cervical spine CT without contrast History: Seizure, fall, bruising about the right eye Technique: Noncontrast CT imaging was performed of the cervical spine. Multiplanar images are reviewed. Exposure: One or more of the following individualized dose reduction techniques were utilized for this examination: 1. Automated exposure control 2. Adjustment of the mA and/or kV according to patient size 3. Use of iterative reconstruction technique. Comparison: None Findings: No cervical spine acute fracture is identified. Vertebral body stature is preserved. AP is alignment is within normal limits. There is mild reversal of the lordotic curvature centered about C4-5. There is very mild cervical dextroscoliosis. Intervertebral disc spaces are overall adequate. Atlanto-axial distance is within normal limits. There is appropriate alignment of lateral masses of C1 relative to C2. Occipital condylar-C1 relationship is maintained. Impression: 1. No acute cervical spine fracture is identified. Electronically signed by: Mike Villagomez MD (08/23/2017 11:18 AM) [facility]
--- NOTE | 2017-08-23 11:33 | RAD ---
CT of the head and facial bones without contrast History:SEIZURE, FALL, BRUISING OVER RIGHT EYE
NO PRIORS Technique: Standard noncontrast images are obtained. Exposure: One or more of the following individualized dose reduction techniques were utilized for this examination: 1. Automated exposure control 2. Adjustment of the mA and/or kV according to patient size 3. Use of iterative reconstruction technique. Comparison: None Head Small area of hypoattenuation identified in the left cerebellum. No evidence of acute intracranial hemorrhage, mass effect, midline shift or abnormal extra-axial fluid collection. Guzman-white matter distinction is intact. Ventricles unremarkable and symmetric Visualized orbits are unremarkable. Visualized paranasal sinuses and mastoids are clear. No acute calvarial abnormality Impression: Small hypoattenuating lesion in the left cerebellum. This may represent a small area of encephalomalacia, and is probably not an acute process. However, considering the patient's young age, significance is uncertain. This could be further evaluated with outpatient MRI brain. No definite acute findings are seen. Facial bones No evidence of an acute fracture. The orbital floors are intact. There is minimal mucosal thickening of the maxillary sinuses. No paranasal sinus fluid levels are identified. The globes and orbital structures appear intact. There is mild focal soft tissue swelling lateral and inferior to the right orbit. Note is made of anterior subluxation of the mandible of the temporomandibular joints bilaterally. There appear to be bilateral dental caries. IMPRESSION: No evidence of acute fracture. Right facial and periorbital soft tissue swelling. Electronically signed by: Bhavik Ozuna MD (08/23/2017 11:30 AM) [facility]
[2017-08-23 12:27] LABS: AMPHETAMINE/METHAMPHETAMINE NEG (NEG); BARBITURATES NEG (NEG); BENZODIAZEPINES NEG (NEG); CANNABINOIDS POS (NEG); COCAINE NEG (NEG); METHADONE NEG (NEG); OPIATES NEG (NEG); PHENCYCLIDINE NEG (NEG)
[2017-08-23 12:31] LABS: BACTERIA,URINE FEW /HPF (0-FEW); BILIRUBIN,URINE NEG (NEG); CLARITY,URINE HAZY; COLOR,URINE AMBER; GLUCOSE,URINE NEG (NEG); NITRITE,URINE NEG (NEG); UROBILINOGEN,URINE 1 mg/dL (0.2 mg/dL)
[2017-08-23 12:32] LABS: HYALINE CASTS, URINE FEW /HPF; SQUAMOUS EPITHELIAL CELL,UR FEW /LPF
--- NOTE | 2017-08-23 12:42 | EKG ---
[address] [address] Test Date: 2017-08-23 Test Time: 10:52:53 Pat Name: KELSEY MATIAS Department: Room: Gender: M Application Counselor: MEL : [id number] Requested By: GLENN DARDEN Order Number: [id number] Reading MD: Antony Grey MD Measurements Intervals [place] Rate: 96 P: -90 DC: 162 QRS: 44 QRSD: 82 T: 44 QT: 354 QTc: 448 Interpretive Statements SINUS RHYTHM Electronically Signed On 08-30-2017 9:54:02 GLUING PRESSMAN by Antony Grey MD
[2017-08-23 15:04] VITALS: BP 136/102
[2017-08-23] MEDS ORDERED: LORazepam 2 MG/ML VIAL IV PRN (15:15)
[2017-08-23] MEDS ORDERED: ONDANSETRON PF 4 MG/2 ML VIAL. IV PRN (15:15)
[2017-08-23] MEDS ORDERED: chlordiazePOXIDE HCL 25 MG CAPSULE PO PRN ×2 (15:15)
[2017-08-23] MEDS ORDERED: KETOROLAC 30 MG/ML VIAL. IV PRN (15:30)
[2017-08-23] MEDS ORDERED: guaiFENesin DM 200MG/20MG 10 ML SYRUP PO PRN (15:30)
--- NOTE | 2017-08-23 16:02 | RAD ---
CHEST AP ONLY History: Cough, shortness of breath and seizure today.. Comparison: February 19, 2015 although the report is not available. Findings: Cardiomediastinal silhouette is within normal limits. No focal airspace consolidation. No pneumothorax identified. No evidence of pleural effusion. Impression: No radiographic evidence of active airspace consolidation. Electronically signed by: Bhavik Ozuna MD (08/23/2017 3:59 PM) [facility]
[2017-08-23] MEDS: KETOROLAC 30 MG/ML VIAL. IV PRN (16:14)
[2017-08-23] MEDS ORDERED: NICOTINE 21MG PATCH. TD ONE (18:06)
[2017-08-23 18:11] VITALS: BP 142/94
[2017-08-23 18:34] VITALS: BP 121/90
--- NOTE | 2017-08-23 18:52 | HP ---
ADMIT DATE: 08/23/2017 HISTORY OF PRESENT ILLNESS: The patient is a 36-year-old male patient who was brought into the emergency room by emergency medical service because of seizures. Apparently, the patient is known to have history of abuse and previous episodes of seizures and apparently, has not had any alcohol for the last 4 days because of financial problems and had a witnessed seizure at home with falling on his face and tonic-clonic seizure activity that lasted at least for 4 minutes and has both postictal condition after his seizure. By the time he arrived to the Emergency Room, he was alert, oriented. The patient complained of mild pain in his face and also left-sided chest pain when taking deep breath and on coughing. He apparently was hospitalized here about a year ago for similar problem and he was seen by Dr. Torres and it was recommended that he should follow with him, but he never did. PAST SURGICAL HISTORY: Significant for alcoholism and an episode of alcohol-induced pancreatitis, had a cyst removed from his right forehead when he was younger. FAMILY HISTORY: Unremarkable. SOCIAL HISTORY: He is , has 1 son. He smokes a pack a day, drinks anywhere from sixth packs to a fifth of vodka. 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 ALLERGIES: He has no known drug allergies. MEDICATIONS: He is currently on no medication. PHYSICAL EXAMINATION: GENERAL: On arrival to the Emergency Room, he looked well and was clearly in no apparent respiratory distress, no pallor, jaundice, cyanosis, or thyromegaly. No jugular venous distension. No limb edema. VITAL SIGNS: His heart rate was 105, blood pressure was 139/98, temperature was 98.5, respiratory rate was 18, and oxygen saturation was 99% on room air. HEAD, EYES, EAR, NOSE AND THROAT: Showed normocephalic, atraumatic. He has small bruises on the left forehead. NECK: Supple. HEART: Showed normal first and second heart sounds. No gallop, rub or murmur. CHEST: Clear to auscultation. No crepitation or rhonchi. ABDOMEN: Distended, soft, and nontender. He has some tenderness in the left side of the chest. NEUROLOGIC: He is awake, alert, responding appropriately. Cranial nerves intact. EXTREMITIES: He moves extremities without difficulty. He apparently able to ambulate without assistance or assistive devices. LABORATORY DATA: Showed a white cell count 11,300, hemoglobin 10.6, hematocrit 33.6, MCV 78, and platelet count of 182,000. His chemistry showed a serum sodium 133, potassium 3.5, chloride 95, bicarbonate 24, anion gap of 14, BUN 6, creatinine 0.9, estimated GFR was 96 mL per minute, glucose 126, calcium was 8.8. Total bilirubin, AST, ALT, alkaline phosphatase were normal. Total protein 7.4, albumin 3.7. Urinalysis was unremarkable and urine toxicology screen was negative for opiates, methadone, barbiturates, phencyclidine, amphetamine, methamphetamine, benzodiazepine, and cocaine. It was positive for cannabinoids, negative for alcohol. He has had x-ray of his head and facial bones, which showed that he has small area of hypoattenuation identified in the left cerebellum. No evidence of acute intracranial hemorrhage, mass effect, midline shift or abnormal extra-axial or fluid collection. Guzman-white matter distinction is intact. Ventricles unremarkable and symmetric. The visualized orbits are unremarkable. Visualized paranasal sinuses and mastoids are clear. No acute calvarial abnormality. The cervical spine showed no acute cervical spine fracture identified. Chest x-ray showed no radiographic evidence of active airspace consolidation. ASSESSMENT AND PLAN: In summary, this is a 36-year-old male patient, who is a heavy drinker and no apparently, has not had any alcohol for almost 4 days and developed alcohol withdrawal seizures. He has tonic-clonic and he fell and hit his left side of the face, and also left side of the chest. All his lab works and imaging studies are so far normal. We will start him on alcohol withdrawal protocol and consult Dr. Torres. Repeat his labs tomorrow and decide if further management accordingly. LA[place] NEUMANN MD DR: SEAMUS/xavi JOB#: [id number] / [id number]
[2017-08-23 23:00] VITALS: BP 126/95
[2017-08-24] MEDS: LORazepam 2 MG/ML VIAL IV PRN ×2 (00:32→09:06)
[2017-08-24 03:00] VITALS: BP 136/88
[2017-08-24 06:49] LABS: BASO % 0 % (0-3); EOS # 0.2 x10^3/uL (0.0-0.7); EOS % 2 % (0-3); HEMATOCRIT 29.1 % (39.0-53.0); HEMOGLOBIN 9.5 g/dL (13.0-17.5); LYMPH # 1.3 x10^3/uL (1.0-4.8); LYMPH % 15 % (24-48); MEAN CORPUSCULAR HEMOGLOBIN 25 pg (25-35); MEAN CORPUSCULAR HGB CONC 33 g/dL (31-37); MEAN CORPUSCULAR VOLUME 77 fL (79-100); MONO # 0.7 x10^3/uL (0.0-1.1); MONO % 8 % (0-9); NEUT # 6.7 x10^3uL (1.8-7.7); NEUT % 75 % (31-73); PLATELET COUNT 130 x10^3/uL (140-400); RED BLOOD COUNT 3.78 x10^6/uL (4.30-5.70); RED CELL DISTRIBUTION WIDTH 23.1 % (11.5-14.5)
[2017-08-24 07:07] VITALS: BP 118/73
[2017-08-24 07:09] LABS: ALBUMIN 3.3 g/dL (3.4-5.0); CALCIUM 8.5 mg/dL (8.5-10.1); CREATININE 0.6 mg/dL (0.7-1.3); GFR 152.4; MAGNESIUM 1.3 mg/dL (1.8-2.4); TOTAL BILIRUBIN 1.1 mg/dL (0.2-1.0); TOTAL PROTEIN 6.7 g/dL (6.4-8.2)
[2017-08-24 07:13] LABS: POTASSIUM 2.6 mmol/L (3.5-5.1)
[2017-08-24] MEDS ORDERED: MAGNESIUM SULFATE 2GM 50 ML IV ONE (08:00)
[2017-08-24] MEDS ORDERED: NICOTINE 21MG PATCH. TD SCH (09:00)
[2017-08-24] MEDS ORDERED: MVI, ADULT NO.4 WITH VIT K 10 ML, THIAMINE 100 MG, FOLIC ACID 1 MG in IV NORMAL SALINE ... IV SCH ×4 (09:00)
[2017-08-24] MEDS: KETOROLAC 30 MG/ML VIAL. IV PRN (09:02)
[2017-08-24] MEDS: POTASSIUM CHLORIDE 20 MEQ TABLET.ER. PO SCH ×2 (09:03→10:33)
[2017-08-24 11:33] VITALS: BP 123/88
--- NOTE | 2017-08-24 11:56 | CONS ---
DATE OF CONSULTATION: 08/23/2017 REASON FOR CONSULTATION: Breakthrough seizures. HISTORY OF PRESENT ILLNESS: This is a 36-year-old right-handed white male who has had history of excessive use of alcohol, who was admitted through Emergency Room after he presented with recent generalized tonic-clonic seizure. The patient was at home when he had a seizure. He woke up in the Emergency Room and he does not recall the events. The patient stated his last drink was 4 days ago. He has been admitted to the same institute a few months ago because of alcohol withdrawal seizure. Currently, the patient denies headaches, visual disturbances, nausea, vomiting, chest pain, shortness of breath or palpitation, dysarthria, dysphagia, weakness or paresthesia. PAST MEDICAL HISTORY: Significant for alcoholism, pancreatitis secondary to alcoholism. PAST SURGICAL HISTORY: Cyst removal from right forehead. FAMILY HISTORY: Father is alcoholic. SOCIAL HISTORY: The patient is . He has 1 child. He drinks alcohol excessively. The last drink was 1 pint of vodka 4 days ago. He smokes 1 pack of cigarettes daily. 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 He denies illegal drug use. ALLERGIES: No known drug allergies. CURRENT HOME MEDICATIONS: None. PHYSICAL EXAMINATION: GENERAL: Well developed, well nourished white male in acute distress. VITAL SIGNS: Blood pressure is 126/95, respiratory rate 18, pulse is 85 and regular, temperature is 98.6, oxygen saturation 99% on room air. HEENT: Normocephalic, atraumatic, otherwise unremarkable. NECK: Supple. Negative for carotid bruit, lymphadenopathy or thyromegaly. LUNGS: Clear to A and P. CARDIOVASCULAR: Regular rate and rhythm, normal S1, S2. There is no S3, S4 or murmur. ABDOMEN: Soft, bowel sounds positive. There is no palpable mass or organomegaly or tenderness. EXTREMITIES: Negative for cyanosis, clubbing or pitting edema. NEUROLOGIC: Mental status: The patient is alert and oriented x 3. Speech is fluent. There is no language dysfunction. Memory, judgment, and abstract thinking are normal. The patient denies hallucination or delusion. CRANIAL NERVES: Visual coyle are full. The pupils are reactive to light and accommodation. Extraocular movements are intact. There is no nystagmus. There is no facial motor or sensory deficit. Hearing is intact bilaterally. The palate is elevated symmetrically. Sternocleidomastoid muscles are powerful bilaterally. The patient shrugs his shoulders symmetrically. He protrudes his tongue in the midline without fasciculation or atrophy. MOTOR: No focal muscle bulk was seen. The tone is normal. The strength is 5/5 throughout. SENSORY: Normal pinprick, light touch, vibratory and position senses. Deep tendon reflexes are symmetric and active without pathologic responses. Gait and coordination were normal. LABORATORY DATA: CBC revealed white blood cells of 11.3 thousand, hemoglobin 10.6, hematocrit 33.6, platelet count 182,000. Chemistry revealed sodium of 133, potassium 3.5, chloride 95, CO2 of 24, BUN 6, creatinine 0.9, glucose 126. Liver enzymes are normal. Magnesium is pending. Calcium is 8.8. Urine drug screen, alcohol is less than 10. Urinalysis is negative. IMPRESSION: 1. Recurrent seizure, probably alcohol withdrawal seizure. 2. Alcoholism. RECOMMENDATIONS: 1. Continue with current management initiated by Dr. Song for alcohol withdrawal protocol. 1. Alcohol cessation. M Ursula MOYA MD DR: MEGGAN/xavi JOB#: [id number] / [id number]
[2017-08-24 12:24] LABS: CALCIUM 8.3 mg/dL (8.5-10.1); CREATININE 0.7 mg/dL (0.7-1.3); GFR 127.6; POTASSIUM 3.7 mmol/L (3.5-5.1)
--- NOTE | 2017-08-24 14:10 | RAD ---
INDICATION: left sided chest pain COMPARISON: Chest x-ray 1 day prior IMPRESSION: Left ribs: 3 views obtained. No definite left rib fracture is seen.
[2017-08-24] MEDS ORDERED: LORA-434 PO (14:21)
== END 2017-08-24 14:39 | disposition home or self-care (01) | DRG 897 ==
LOC: ER 10:31 → ICU 12:15 → OBSVTOIN 15:16
PROVIDERS: ADMIT Internal Medicine; ATTEND Internal Medicine
DX: F10.239 Alcohol dependence with withdrawal, unspecified (principal); F17.210 Nicotine dependence, cigarettes, uncomplicated; G40.509 Epileptic seizures related to external causes, not intractable, without status epilepticus; W18.39XA Other fall on same level, initial encounter; S00.83XA Contusion of other part of head, initial encounter; Z88.1 Allergy status to other antibiotic agents; Z88.8 Allergy status to other drugs, medicaments and biological substances; Z71.6 Tobacco abuse counseling; Y93.89 Activity, other specified; Y92.099 Unspecified place in other non-institutional residence as the place of occurrence of the external cause; Y99.8 Other external cause status; Y90.9 Presence of alcohol in blood, level not specified
CPT/HCPCS: 36415; 70450; 70486; 71045; 71100; 72125; 80048; 80053; 80307; 81001; 83735; 85025; 87641; 93005; 96361; 96374; G0378; G0379; G0480; J1885; J2060; J2405; J3475; 99285-25; G0479; J7030

== ENCOUNTER 2019-08-12 19:43 | Emergency (ER) | payer SELFPAY ==
[~2019-08-12] VITALS: Ht 167.6 cm; Wt 62.1 kg
[~2019-08-12 19:43] MED LIST changes: +LORA-254 PO; -LORA-434 PO
[2019-08-12 20:02] VITALS: BP 132/96
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
[2019-08-12] MEDS ORDERED: HYDROcodone/APAP 5/325MG 1 TAB TABLET PO ONE (21:15)
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
[2019-08-12] MEDS ORDERED: HYDROcodone/APAP 5/325MG 1 TAB TABLET ONE (21:21)
== END 2019-08-12 21:25 | disposition home or self-care (01) ==
LOC: ER 19:43
DX: S01.81XA Laceration without foreign body of other part of head, initial encounter (principal); S00.12XA Contusion of left eyelid and periocular area, initial encounter; F10.20 Alcohol dependence, uncomplicated; Z88.1 Allergy status to other antibiotic agents; Y90.9 Presence of alcohol in blood, level not specified; Y08.89XA Assault by other specified means, initial encounter; Y93.89 Activity, other specified; Y92.89 Other specified places as the place of occurrence of the external cause; Y99.8 Other external cause status
CPT/HCPCS: 12011; 70150; 99284

== ENCOUNTER 2020-01-08 14:59 | Emergency (ER) | payer SELFPAY ==
[~2020-01-08] VITALS: Ht 167.6 cm; Wt 66.0 kg
--- NOTE | 2020-01-08 15:17 | EKG ---
[address] [address] Test Date: 2020-01-08 Test Time: 15:09:20 Pat Name: KELSEY MATIAS Department: Room: Gender: M Ambulatory Care Nurse: : 1980 Requested By: DAVID HOLCOMB Order Number: [id number] Reading MD: Vitor Campo Measurements Intervals [place] Rate: 87 P: 46 WV: 156 QRS: 23 QRSD: 84 T: 51 QT: 372 QTc: 454 Interpretive Statements SINUS RHYTHM Electronically Signed On 01-09-2020 8:25:06 CDT by Vitor Campo
--- NOTE | 2020-01-08 15:40 | PHYS DOC ---
Past History Past Medical History: Alcoholism, Other Additional Past Medical Histor: WITHDRAW SEIZURES Past Surgical History: Other Additional Past Surgical Histo: CYST REMOVAL OF NECK Alcohol Use: Heavy Drug Use: Marijuana General Adult EDM: Chief Complaint: SEIZURE HPI: HPI: 39-year-old male with past medical history of alcoholism presents via EMS with report of seizure-like activity just prior to arrival. Patient reports he typically drinks a pint of vodka daily but has not drank anything in the last 2 days. Patient does report prior seizures secondary to alcohol withdrawal. Patient denies any current pain. Denies fever or chills. Review of Systems: Review of Systems: Constitutional: Denies fever or chills Eyes: Denies redness or eye pain HENT: Denies nasal congestion or sore throat Respiratory: Denies cough or shortness of breath Cardiovascular: Denies chest pain or palpitations GI: Denies abdominal pain, nausea, or vomiting : Denies dysuria or hematuria Musculoskeletal: Denies back pain or joint pain Integument: Denies rash or skin lesions Neurologic: Denies headache, focal weakness or sensory changes; reports seizure- like activity Complete systems were reviewed and found to be within normal limits, except as documented in this note. Current Medications: Current Meds: Current Medications Medications (Trade) Dose Ordered Sig/Cosmo Start Time Stop Time Status Last Admin Dose Admin Lorazepam (Ativan Inj) 1 mg 1X ONCE 01/08/20 15:15 01/08/20 15:16 DC 01/08/20 15:24 1 MG Multivitamins/ Minerals 10 ml/ Folic Acid 1 mg/ Thiamine HCl 100 mg/Sodium Chloride 1,011.3 ml @ 1,000.187 mls/hr 1X ONCE 01/08/20 15:45 01/08/20 16:45 01/08/20 15:30 1,000.187 MLS/HR Allergies: Allergies: Allergies Coded Allergies Type Severity Reaction Last Updated Verified amoxicillin Allergy Intermediate 02/17/15 Yes clavulanic acid Allergy Intermediate 02/17/15 Yes Physical Exam: PE: Constitutional: Well developed, well nourished, no acute distress, non-toxic appearance HENT: Normocephalic, atraumatic Eyes: PERRL, EOMI, conjunctiva normal, no discharge, no nystagmus Neck: Normal range of motion, no tenderness, supple Cardiovascular: Heart rate normal, regular rhythm Lungs & Thorax: Bilateral breath sounds clear to auscultation, no wheezing Abdomen: Soft, no tenderness Skin: Warm, dry, no erythema, no rash Extremities: No tenderness, ROM intact, no edema Neurologic: Alert and oriented X 3, normal motor function, normal sensory function, no focal deficits noted Psychologic: Affect normal, judgment normal Current Patient Data: Vital Signs: Vital Signs Date Time Temp Pulse Resp B/P (MAP) Pulse Ox O2 Delivery O2 Flow Rate FiO2 01/08/20 15:07 99.6 95 18 162/96 (118) 99 Room Air EKG: EKG: @1509 NSR at 87bpm, NO ST elevation, QRS 84ms, QT/QTc 372/454ms Radiology/Procedures: Radiology/Procedures: PROCEDURE: CT HEAD WO CONTRAST CT Head W/O Contrast: History: Seizure Comparison: August 23, 2017 Axial images were obtained without contrast. There is moderate diffuse atrophy. There is no mass effect, extraaxial fluid collections or hydrocephalus. There is no focal loss of levi-white matter distinction to suggest acute ischemia, i.e. stroke. Impression: Moderate diffuse cerebral and cerebellar atrophy is advanced for the patient's age. No acute findings. End impression PQRS Compliance Statement: One or more of the following individualized dose reduction techniques were utilized for this examination: 1. Automated exposure control 2. Adjustment of the mA and/or kV according to patient size 3. Use of iterative reconstruction technique Electronically signed by: Jed Russell III, MD (01/08/2020 3:54 PM) [id number] Course & Med Decision Making: Course & Med Decision Making Pertinent Labs and Imaging studies reviewed. (See chart for details) Patient presents with HPI and physical exam concerning for alcohol withdrawal seizures. Patient reports history of similar. Labs obtained and posted to chart. Lactic acid elevated consistent with generalized seizure like activity. CT head without acute process. IV fluid hydration provided. Hypokalemia and hypomagnesemia addressed. Patient offered admission for further evaluation and treatment. Patient declined and request to leave AGAINST MEDICAL ADVICE. Joselo nt acknowledges understanding of risks of AMA including permanent disability and/or . Patient acknowledges understanding and agreement. Dragon Disclaimer: Shahab Disclaimer: This electronic medical record was generated, in whole or in part, using a voice recognition dictation system. Departure Departure: Impression: Primary Impression: Alcohol withdrawal seizure Qualified Codes: F10.230 - Alcohol dependence with withdrawal, uncomplicated Additional Impressions: Hypokalemia Hypomagnesemia Disposition: 07 AGAINST MEDICAL ADVICE Condition: GUARDED Referrals: PCP,MEET (PCP) EMERY MOYA MD Patient Instructions: Alcohol Withdrawal, [id number], Alcohol and Drug Addiction, Finding Treatment, Discharge Against Medical Advice, Hypokalemia, Hypomagnesemia, Potassium Content of Foods, Seizure, Adult, [id number] Scripts Chlordiazepoxide Hcl (CHLORDIAZEPOXIDE HCL) 25 Mg Capsule 25 MG PO DIRECTED for Alcohol Withdrawal, #15 CAP Day 1: Take 50mg QID Day 2: Take 25mg QID Day 3: Take 25mg BID Day 4: Take 25mg QHS Prov: DAVID HOLCOMB DO 01/08/20 Critical Care Time Critical care time was 30 minutes which includes time at bedside, spent in discussion of patient's care with specialists and/or family members, with interpretation of laboratory and/or radiological studies and is exclusive of procedures. DAVID HOLCOMB DO January 08, 2020 15:40
[2020-01-08 15:41] LABS: BASO % 1 % (0-3); EOS % 0 % (0-3); HEMATOCRIT 44.3 % (39.0-53.0); HEMOGLOBIN 15.3 g/dL (13.0-17.5); LYMPH # 0.9 x10^3/uL (1.0-4.8); LYMPH % 16 % (24-48); MEAN CORPUSCULAR HEMOGLOBIN 33 pg (25-35); MEAN CORPUSCULAR HGB CONC 35 g/dL (31-37); MEAN CORPUSCULAR VOLUME 95 fL (79-100); MONO # 0.7 x10^3/uL (0.0-1.1); MONO % 13 % (0-9); NEUT % 70 % (31-73); PLATELET COUNT 77 x10^3/uL (140-400); RED BLOOD COUNT 4.69 x10^6/uL (4.30-5.70); RED CELL DISTRIBUTION WIDTH 14.8 % (11.5-14.5); WHITE BLOOD COUNT 5.7 x10^3/uL (4.0-11.0)
[2020-01-08] MEDS ORDERED: MVI, ADULT NO.4 WITH VIT K 10 ML, FOLIC ACID INJ 1 MG, THIAMINE INJ 100 MG in IV NORMAL... IV ONE ×4 (15:45)
[2020-01-08 15:51] LABS: CALCIUM 8.8 mg/dL (8.5-10.1); CREATININE 0.9 mg/dL (0.7-1.3); GFR 93.9; POTASSIUM 3.2 mmol/L (3.5-5.1)
--- NOTE | 2020-01-08 15:57 | RAD ---
CT Head W/O Contrast: History: Seizure Comparison: August 23, 2017 Axial images were obtained without contrast. There is moderate diffuse atrophy. There is no mass effect, extraaxial fluid collections or hydrocephalus. There is no focal loss of levi-white matter distinction to suggest acute ischemia, i.e. stroke. Impression: Moderate diffuse cerebral and cerebellar atrophy is advanced for the patient's age. No acute findings. End impression PQRS Compliance Statement: One or more of the following individualized dose reduction techniques were utilized for this examination: 1. Automated exposure control 2. Adjustment of the mA and/or kV according to patient size 3. Use of iterative reconstruction technique Electronically signed by: Jed Rusesll III, MD (01/08/2020 3:54 PM) [id number]
[2020-01-08 16:14] VITALS: BP 137/95
[2020-01-08 16:24] LABS: ALBUMIN 3.7 g/dL (3.4-5.0); ALBUMIN/GLOBULIN RATIO 1.1 (1.0-1.7); MAGNESIUM 1.3 mg/dL (1.8-2.4); TOTAL BILIRUBIN 1.9 mg/dL (0.2-1.0); TOTAL PROTEIN 7.2 g/dL (6.4-8.2)
[2020-01-08] MEDS ORDERED: POTASSIUM CHLORIDE 20 MEQ TABLET.ER. PO ONE (16:30)
[2020-01-08] MEDS ORDERED: CHLO25CA9 PO (16:37)
[2020-01-08] MEDS ORDERED: MAGNESIUM CHLORIDE ER 64 MG TABLET.ER PO ONE (16:45)
[2020-01-08 16:52] LABS: BARBITURATES NEG (NEG); BENZODIAZEPINES NEG (NEG); CANNABINOIDS POS (NEG); COCAINE NEG (NEG); METHADONE NEG (NEG); OPIATES NEG (NEG); PHENCYCLIDINE NEG (NEG)
[2020-01-08 16:54] LABS: AMPHETAMINE/METHAMPHETAMINE NEG (NEG)
[2020-01-08 17:05] LABS: BACTERIA,URINE 0 /HPF (0-FEW); BILIRUBIN,URINE NEG (NEG); CLARITY,URINE CLEAR; COLOR,URINE YELLOW; GLUCOSE,URINE NEG (NEG); NITRITE,URINE NEG (NEG); RBC,URINE OCC /HPF (0-2); SQUAMOUS EPITHELIAL CELL,UR OCC /LPF
== END 2020-01-08 16:47 | disposition left against medical advice (07) ==
LOC: ER 14:59
DX: R56.9 Unspecified convulsions (principal); F10.239 Alcohol dependence with withdrawal, unspecified; E87.6 Hypokalemia; E83.42 Hypomagnesemia; Z88.1 Allergy status to other antibiotic agents; Y90.0 Blood alcohol level of less than 20 mg/100 ml
CPT/HCPCS: 36415; 70450; 80053; 80307; 81001; 82553; 83605; 83735; 84484; 85025; 93005; 96365; 96375; 99285; G0480; J2060; J7030

== ENCOUNTER 2021-05-01 13:11 | Emergency (ER) | payer OTHER ==
[~2021-05-01] VITALS: Ht 167.6 cm; Wt 63.2 kg
[~2021-05-01 13:11] MED LIST changes: +CHLO25CA9 PO
[2021-05-01 14:53] VITALS: BP 110/75
--- NOTE | 2021-05-01 15:25 | RAD ---
PROCEDURE: XR CHEST 1V.05/01/2021 3:22 PM REASON FOR STUDY: Reason: cough x 2 weeks / Spl. Instructions: / History: . COMPARISON: Study of 08/23/2017. FINDINGS: There are now patchy bilateral infiltrates. These are seen laterally in the right lung and at the left lung base. No pleural fluid is seen. Heart size is normal. IMPRESSION: Bilateral pulmonary infiltrates. Electronically signed by: Aleksandr Bernal Jr., MD (05/01/2021 3:23 PM) [id number]
--- NOTE | 2021-05-01 15:49 | PHYS DOC ---
Past History Past Medical History: Alcoholism, Other Additional Past Medical Histor: WITHDRAW SEIZURES Past Surgical History: Other Additional Past Surgical Histo: CYST REMOVAL OF NECK Alcohol Use: Heavy Drug Use: Marijuana General Adult EDM: Chief Complaint: COUGH HPI: HPI: 40-year-old male history of tobacco abuse, takes no routine prescribed medications, presents the ED with complaints of productive cough, dizziness, sinus pressure, weakness, fatigue and body aches, "I feel like crap doc," for the past 2 weeks. States his cough has worsened and is productive. Reports he tested positive for Covid 2 weeks ago. Has not been vaccinated for Covid. Does not a primary care physician. No history of COPD. Review of Systems: Review of Systems: Constitutional: Denies fever or chills Eyes: Denies change in visual acuity HENT: Denies nasal congestion or sore throat Respiratory: Denies dyspnea or hemoptysis Cardiovascular: Denies chest pain or edema GI: Denies nausea, vomiting, bloody stools or diarrhea : Denies dysuria or hematuria Musculoskeletal: Denies back pain or joint pain Integument: Denies rash or diaphoresis Neurologic: Denies neck stiffness, focal weakness or sensory changes Endocrine: Denies polyuria or polydipsia Lymphatic: Denies swollen glands Psychiatric: Denies depression or anxiety Allergies: Allergies: Allergies Coded Allergies Type Severity Reaction Last Updated Verified amoxicillin Allergy Intermediate 02/17/15 Yes clavulanic acid Allergy Intermediate 02/17/15 Yes Physical Exam: PE: Constitutional: Well developed, well nourished, no acute distress, non-toxic appearance. HENT: Normocephalic, atraumatic, Eyes: EOMI, conjunctiva normal, no discharge. Neck: Normal range of motion, supple, Cardiovascular: S1/2 present, regular rhythm Lungs & Thorax: Speaking in full sentences, bilateral equal chest rise, no tachypnea or increased work of breathing Abdomen: soft, no tenderness, Skin: Warm, dry, no erythema, no rash. [] Back: No tenderness, no CVA tenderness. [] Extremities: No tenderness, no cyanosis, no lower extremity edema Neurologic: Alert and oriented X 3, normal motor function, normal sensory function, no focal deficits noted. [] Psychologic: Affect normal, judgement normal, mood normal. [] EKG: EKG: [] Radiology/Procedures: Radiology/Procedures: IMAGING REPORT Signed PATIENT: KELSEY MATIAS ACCOUNT: [id number] : 1980 LOCATION: ER AGE: 40 SEX: M EXAM STATUS: REG ER ORD. PHYSICIAN: MELA NAVARRO DO REASON: cough x 2 weeks PROCEDURE: CHEST AP ONLY PROCEDURE: XR CHEST 1V.05/01/2021 3:22 PM REASON FOR STUDY: Reason: cough x 2 weeks / Spl. Instructions: / History: . COMPARISON: Study of 08/23/2017. FINDINGS: There are now patchy bilateral infiltrates. These are seen laterally in the right lung and at the left lung base. No pleural fluid is seen. Heart size is normal. IMPRESSION: Bilateral pulmonary infiltrates. Electronically signed by: Howard Enciso Jr., MD (05/01/2021 3:23 PM) [id number] DICTATED AND SIGNED BY: HOWARD ENCISO Jr, MD DATE: 05/01/21 1522 CC: PCP,NO; MELA NAVARRO DO ~MTH0 0 Heart Score: C/O Chest Pain: No Risk Factors: Risk Factors: DM, Current or recent (<one month) smoker, HTN, HLP, family history of CAD, obesity. Risk Scores: Score 0 - 3: 2.5% MACE over next 6 weeks - Discharge Home Score 4 - 6: 20.3% MACE over next 6 weeks - Admit for Clinical Observation Score 7 - 10: 72.7% MACE over next 6 weeks - Early Invasive Strategies Course & Med Decision Making: Course & Med Decision Making Pertinent Labs and Imaging studies reviewed. (See chart for details) COVID-19 CRITERIA: The patient was evaluated during the global COVID-19 p andemic, and that diagnosis was suspected/considered upon their initial presentation. Their evaluation, treatment and testing was consistent with current guidelines for patients who present with complaints or symptoms that may be related to COVID-19. Concern for pneumonia secondary to COVID-19 infection. Will treat with antibiotics. Patient afebrile, hemodynamically stable. 99% on room air with heart rate of 92. Will discharge home with strict ED return precautions were given for increased work of breathing, dyspnea, chest pain, syncope or neurologic deficits. Encouraged urgent outpatient follow-up with PMD and pulmo nology. Life-threatening processes were considered but are low suspicion at this time, given history, physical exam and ED workup. Pt was educated on all prescription medications and adverse effects. All patient's questions were answered and pt was stable at time of discharge. Life/limb-threatening differential includes but is not limited to, foreign body, infection/sepsis, congestive heart failure or pulmonary edema, lung cancer intrathoracic mass, bronchoconstriction, asthma/COPD/lung disease exacerbation, pneumothorax or hemothorax, pulmonary emboli, autoimmune/neurologic disease or toxidrome. I have spoken with the patient and/or caregivers. I explained the patient's condition, diagnoses and treatment plan based on the information available to me at this time. I have answered the patient and/or caregiver's questions and addressed any concerns. The patient and/or caregivers have a good understanding of patient's diagnosis, condition and treatment plan as can be expected at this point. Vital signs have been stable. Patient's condition is stable and appropriate for discharge from the emergency department. Patient will pursue further outpatient evaluation with primary care physician or other designated or consulting physician as outlined in the discharge instructions. The patient and/or caregivers are agreeable to this plan of care and follow-up instructions have been explained in detail. The patient and/or caregivers have received these instructions in written form and have expressed an understanding of the discharge instructions. The patient and/or caregivers are aware that any significant change of condition or worsening of symptoms should prompt immediate return to this or the closest emergency department or call to 911. Shahab Disclaimer: Shahab Disclaimer: This electronic medical record was generated, in whole or in part, using a voice recognition dictation system. Departure Departure: Impression: Primary Impression: COVID-19 Additional Impression: Bilateral pneumonia Disposition: HOME / SELF CARE / HOMELESS Condition: STABLE Referrals: PCP,NO (PCP) Follow-up with your primary care physician in 24 to 48 hours OR FOLLOW UP WITH FAMILY MEDICINE: [address] [facility] [address] [place] [address] Patient Instructions: Pneumonia, Adult Additional Instructions: Return to ED immediately if your oxygen level drops below 90% (purchase a pulse oximetry at a medical supply store), difficulties breathing including rapid breathing or increased work of breathing (skin sucking under ribs), chest pain or stroke-like symptoms (facial droop, speech changes, arm/leg weakness). FOLLOW UP WITH PULMONOLOGY: FOR [facility]IVE MANAGEMENT [facility] [address] [place] [address] You have been tested for or diagnosed with COVID-19. It is an infection caused by a new type of coronavirus. COVID-19 will cause cold-like or mild flu symptoms in most. It can cause more severe symptoms like problems breathing in some. There is no treatment for COVID-19. The body will clear the infection over time. Self-care will help to ease discomfort. Steps to Take: Self-Care Rest as needed. Healthy habits may help you feel better. Steps include: Choose healthy foods including fruits and vegetables. Drink water throughout the day. Get plenty of sleep each night. If you smoke, try to quit. It may ease breathing. Avoid alcohol. Keep Others Healthy The virus can spread to others. Droplets are released every time you sneeze or cough. The droplets can get into the mouth, nose, or eyes of people near you and lead to infection. To lower the chances of spreading COVID-19 to others: Stay at home until your doctor has said it is safe to leave. If you tested positive this will mean staying isolated until both of the following are true: At least 7 days have passed since the start of illness. You are free of fever for at least 72 hours without the use of medicine. During this time: - Avoid public areas, events, or transportation. Do not return to work or school until your doctor has said it is safe to do so. - Call ahead if you need to go to a medical center. Let them know you may have COVID-19. It will help them guide you where to go. They may also ask you to wear a facemask when you come to the office. - If you call for emergency medical services, let them know you may have COVID- 19. While at home: - Try to avoid close contact with others. Stay about 6 feet away. - If possible, spend most of your time in a separate room from others. - Use a face mask if you will be in close contact with others such as sharing a room or vehicle. - Have someone wipe down common surfaces in the home. Use household sales promotion officer every day on areas like doorknobs, counters, or sinks. - Cough or sneeze into a tissue. Throw the tissue away right after use. If a tissue is not available, cough or sneeze into your elbow. - Wash your hands often. Wash them after sneezing or coughing. Use soap and water and wash for at least 20 seconds. Alcohol based hand auto cleaner can be used if soap and water is not available. - Do not prepare food for others. Avoid sharing personal items like forks, spoons, or toothbrushes. - Avoid close contact with pets while you are sick. There is no evidence of the virus passing to pets. This is a safety step until more is known about this virus. Isolation can be frustrating. Social interaction can help. Keep in touch with friends and family through phone and tech options. You can still interact with others in your home, just keep a safe distance of about 6 feet. Follow-up: Your doctors office will check in with you to see if there are any changes in your health. You may be asked to keep track of symptoms to share with them. They will also let you know when you are clear to be in public again. Problems to Look Out For: Contact your doctor if your recovery is not going as you expect. Get emergency care if you have problems such as: - Trouble breathing - Nonstop chest pain or pressure - Changes in awareness, confusion, or problems waking - Lips or face have bluish color - Worsening of symptoms If you think you have an emergency, call for emergency medical services right away. As taken from [facility] Levofloxacin (LEVOFLOXACIN) 750 Mg Tablet 1 TAB PO DAILY for pneumonia, #7 TAB Prov: MELA NAVARRO DO 05/01/21 MELA NAVARRO DO May 01, 2021 15:49
[2021-05-01] MEDS ORDERED: AMOX1TAB61 PO (16:23)
[2021-05-01] MEDS ORDERED: LEVO750T5 PO (16:40)
--- NOTE | 2021-05-03 11:38 | NUR ---
IP: Attempted to contact pt concerning covid results. Phone not accepting calls at this time. Will try later.
== END 2021-05-01 16:43 | disposition home or self-care (01) ==
LOC: ER 13:11
DX: U07.1 COVID-19 (principal); J18.9 Pneumonia, unspecified organism; F10.20 Alcohol dependence, uncomplicated; Z88.1 Allergy status to other antibiotic agents; Y90.9 Presence of alcohol in blood, level not specified
CPT/HCPCS: 71045; 99285; C9803; U0003

== ENCOUNTER 2021-05-06 18:31 | Inpatient (IN) | payer SELFPAY ==
[~2021-05-06] VITALS: Ht 167.6 cm; Wt 63.3 kg
[~2021-05-06 18:31] MED LIST changes: +AMOX1TAB61 PO; +LEVO750T5 PO
--- NOTE | 2021-05-06 18:33 | PHYS DOC ---
Past History Past Medical History: Alcoholism, Other Additional Past Medical Histor: WITHDRAW SEIZURES Past Surgical History: Other Additional Past Surgical Histo: CYST REMOVAL OF NECK Alcohol Use: Heavy Drug Use: Marijuana Adult General Chief Complaint Chief Complaint: SEIZURE HPI HPI Patient is a 40-year-old male with a past medical history significant for alcoholism, and alcohol withdrawal seizures who was also diagnosed with Covid 2 days ago who presents to the emergency department with a chief complaint of seizure activity. States since he was diagnosed with Covid a couple of days ago has had decreased appetite and has not had a drink of alcohol in almost 2 days and has not been able to really eat or drink anything at all. States he had some mild diarrhea. States he was at home at his mom's just before coming into the emergency department when he passed out and had a seizure lasting a few minutes. Denies any traumas, biting of the tongue, urination. Denies any numbness/weakness/tingling. Denies any chest pain, shortness of breath, abdominal pain, vomiting, dysuria, hematuria. Endorses mild nausea. Review of Systems Review of Systems Review of systems otherwise unremarkable except noted in HPI Allergies Allergies Allergies Coded Allergies Type Severity Reaction Last Updated Verified amoxicillin Allergy Intermediate 02/17/15 Yes clavulanic acid Allergy Intermediate 02/17/15 Yes Physical Exam Physical Exam Constitutional: Well developed, well nourished, no acute distress, non-toxic appearance. [] HENT: Normocephalic, atraumatic, bilateral external ears normal, oropharynx moist, no oral exudates, nose normal. [] Eyes: PERRLA, EOMI, conjunctiva normal, no discharge. [] Neck: Normal range of motion, no tenderness, supple, no stridor. [] Cardiovascular:Heart rate regular rhythm, no murmur [] Lungs & Thorax: Bilateral breath sounds clear to auscultation [] Abdomen: soft, no tenderness, no masses, no pulsatile masses. [] Skin: Warm, dry, no erythema, no rash. [] Back: No tenderness, no CVA tenderness. [] Extremities: No tenderness, no cyanosis, no clubbing, ROM intact, no edema. [] Neurologic: Alert and oriented X 3, normal motor function, normal sensory function, able to sit, stand and walk without issue, cranial nerves intact no focal deficits noted. [] Psychologic: Affect normal, mood normal. [] EKG EKG [] Radiology/Procedures Radiology/Procedures [] Heart Score C/O Chest Pain: No Risk Factors: Risk Factors: DM, Current or recent (<one month) smoker, HTN, HLP, family history of CAD, obesity. Risk Scores: Risk Factors: DM, Current or recent (<one month) smoker, HTN, HLP, family history of CAD, obesity. Course & Med Decision Making Course & Med Decision Making Patient is a 40-year-old male who presents with probable alcohol withdrawal and alcohol withdrawal seizure. Vital signs notable for tachycardia. Placed on the monitor with IV access established and IV fluid begun. Given Ativan. Laboratory analysis notable for hyponatremia and hypomagnesemia. Patient started on multiple B vitamins and given magnesium. Continued on fluid resuscitation. Started on Keppra twice daily. Started on CIWA protocol. Admitted to [place] for continued evaluation and treatment of alcohol withdrawal seizure. Patient verbalized understanding and agreed with plan of transfer and admission to [place]. Dragon Disclaimer Dragon Disclaimer This electronic medical record was generated, in whole or in part, using a voice recognition dictation system. Departure Departure: Impression: Primary Impression: Alcohol withdrawal seizure Disposition: ADMITTED INPATIENT Admitting Physician: Jorge Alberto Guzman Condition: STABLE Referrals: PCP,MEET (PCP) MADELYN HOPE MD May 06, 2021 18:33
[2021-05-06] MEDS ORDERED: IV RINGERS SOLUTION,LACTATED 1,000 ML IV ONE (18:45)
[2021-05-06 19:25] LABS: BASO # 0.1 x10^3/uL (0.0-0.2); BASO % 1 % (0-3); EOS # 0.3 x10^3/uL (0.0-0.7); EOS % 4 % (0-3); HEMATOCRIT 45.8 % (39.0-53.0); HEMOGLOBIN 15.8 g/dL (13.0-17.5); LYMPH # 1.3 x10^3/uL (1.0-4.8); LYMPH % 16 % (24-48); MEAN CORPUSCULAR HEMOGLOBIN 32 pg (25-35); MEAN CORPUSCULAR HGB CONC 34 g/dL (31-37); MEAN CORPUSCULAR VOLUME 92 fL (79-100); MONO # 0.9 x10^3/uL (0.0-1.1); MONO % 11 % (0-9); NEUT # 5.7 x10^3uL (1.8-7.7); NEUT % 68 % (31-73); PLATELET COUNT 355 x10^3/uL (140-400); RED CELL DISTRIBUTION WIDTH 13.7 % (11.5-14.5); WHITE BLOOD COUNT 8.4 x10^3/uL (4.0-11.0)
[2021-05-06 19:32] LABS: CALCIUM 9.1 mg/dL (8.5-10.1); CREATININE 0.8 mg/dL (0.7-1.3); GFR 107.1; POTASSIUM 3.1 mmol/L (3.5-5.1)
[2021-05-06 19:35] LABS: ALBUMIN 2.6 g/dL (3.4-5.0); ALBUMIN/GLOBULIN RATIO 0.6 (1.0-1.7); MAGNESIUM 1.6 mg/dL (1.8-2.4); TOTAL BILIRUBIN 0.4 mg/dL (0.2-1.0); TOTAL PROTEIN 6.8 g/dL (6.4-8.2)
[2021-05-06] MEDS ORDERED: FOLIC ACID 1 MG TABLET PO ONE (20:00)
[2021-05-06] MEDS ORDERED: THIAMINE 100 MG TABLET. PO ONE (20:00)
[2021-05-06] MEDS ORDERED: MAGNESIUM SULFATE 2GM 50 ML IV ONE (20:00)
--- NOTE | 2021-05-06 20:07 | RAD ---
CT HEAD INDICATION: Seizure COMPARISON: 01/08/2020 Exposure: One or more of the following individualized dose reduction techniques were utilized for thi s examination: 1. Automated exposure control 2. Adjustment of the mA and/or kV according to patient size 3. Use of iterative reconstruction technique TECHNIQUE: 5 mm contiguous axial images were obtained from the skull base to the vertex in both bone and soft tissue algorithm. FINDINGS: Small hypodensity identified in the left cerebellum likely old infarct similar to prior exam. No evidence of acute intracranial hemorrhage. No extra-axial fluid collections. No mass effect or midline shift. Ventricular size is appropriate. Basal cisterns are patent. No fractures identified.Guzman-white differentiation is preserved.Globes and orbits are within normal l imits. Moderate mucosal thickening bilateral ethmoidal sinuses. IMPRESSION: 1. No acute intracranial findings. 2. Small hypodensity identified in the left cerebellum likely old infarct similar to prior exam. 3. Moderate mucosal thickening bilateral ethmoidal sinus likely sinus disease. Electronically signed by: Herbert Guajardo MD (05/06/2021 8:04 PM) [id number]
--- NOTE | 2021-05-06 20:23 | RAD ---
XR CHEST 1V INDICATION: AMS / Spl. Instructions: / History: . COMPARISON STUDY: 05/01/2021. FINDINGS: Lungs: Normal lung volume. Improving patchy bilateral opacities. Pleura: No pleural effusion or pneumothorax. Heart and Mediastinum: The cardiomediastinal silhouette is normal. The great vessels of the thorax ar e normal. Bones and Soft Tissues: The bones and soft tissues are within normal limits. IMPRESSION: Improving patchy bilateral opacities Electronically signed by: Mike Rushing MD (05/06/2021 8:21 PM) [facility]
--- NOTE | 2021-05-06 23:16 | EKG ---
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 (Measurements might be questionable) RI6.02 No previous ECG available for comparison
--- NOTE | 2021-05-07 | NUR ---
The patient, KELSEY MATIAS, 40 y/o, M admitted by GUILLE MCKEON MD, was given written information regarding hospital policies, unit procedures and contact persons. Valuables were checked and left with the patient. Pt somnolent and sleeping heavily making it difficult to obtain health history. Will get more detailed information upon waking.
[2021-05-07 00:28] VITALS: BP 107/80
[2021-05-07 05:43] VITALS: BP 106/86
--- NOTE | 2021-05-07 06:44 | NUR ---
Pt is alert and oriented. He states he takes his "mom's valium or Tylenol for pain and insomnia." He also states he uses marijuana to help him sleep at night. He used to use alcohol to help him sleep but doesn't like how it makes him feel so he has been cutting back on alcohol use. He drinks 2 Twister beers per day about 5 days a week after work. He states he hasn't had a seizure in a long time but "it's probably since I haven't been drinking since I'm sick." Will continue to monitor.
[2021-05-07 07:20] LABS: BASO # 0.1 x10^3/uL (0.0-0.2); BASO % 1 % (0-3); EOS # 0.4 x10^3/uL (0.0-0.7); EOS % 4 % (0-3); HEMATOCRIT 44.2 % (39.0-53.0); HEMOGLOBIN 15.2 g/dL (13.0-17.5); LYMPH # 1.2 x10^3/uL (1.0-4.8); LYMPH % 14 % (24-48); MEAN CORPUSCULAR HEMOGLOBIN 32 pg (25-35); MEAN CORPUSCULAR HGB CONC 35 g/dL (31-37); MEAN CORPUSCULAR VOLUME 92 fL (79-100); MONO # 0.9 x10^3/uL (0.0-1.1); MONO % 10 % (0-9); NEUT # 6.2 x10^3uL (1.8-7.7); NEUT % 71 % (31-73); PLATELET COUNT 364 x10^3/uL (140-400); RED CELL DISTRIBUTION WIDTH 14.1 % (11.5-14.5); WHITE BLOOD COUNT 8.8 x10^3/uL (4.0-11.0)
[2021-05-07 07:31] LABS: CALCIUM 8.9 mg/dL (8.5-10.1); CREATININE 0.5 mg/dL (0.7-1.3); GFR 184.2; POTASSIUM 3.1 mmol/L (3.5-5.1)
[2021-05-07] MEDS ORDERED: CYANOCOBALAMIN (VITAMIN B-12) 100 MCG TABLET PO SCH (09:00)
[2021-05-07 10:59] VITALS: BP 103/80
[2021-05-07] MEDS ORDERED: chlordiazePOXIDE HCL 25 MG CAPSULE PO PRN ×2 (14:45)
[2021-05-07] MEDS ORDERED: MAGNESIUM SULFATE 2GM 50 ML IV ONE (15:00)
[2021-05-07 15:08] VITALS: BP 107/84
[2021-05-07] MEDS: POTASSIUM CL 40MEQ IN 0.9%NACL 1,000 ML IV SCH (15:46)
--- NOTE | 2021-05-07 16:18 | HP ---
ADMIT DATE: 05/06/2021 HISTORY OF PRESENT ILLNESS: The patient is a 40-year-old male patient. He came actually to the Emergency Room with a chief complaint of seizures activity. He stated that since he was diagnosed with COVID a couple of days ago, he had decreased appetite and has not had a drink of alcohol for almost 2 days, has not been able to really eat or drink anything at all. He stated he has some mild diarrhea. He was at home at his mom's and just before coming into the Emergency Room when he passed out and had a seizure lasting few minutes. Denied any trauma, biting his tongue or incontinence of bowel or bladder. Denies any numbness, weakness, tingling. Denied any chest pain, shortness of breath. He was extensively investigated in the Emergency Room and has had lab work. His lab work showed that he had mild hyponatremia and hypokalemia. His blood count was unremarkable, and apparently, his coronavirus by PCR was positive. He did have a CT scan of the head which showed that there is no acute intracranial finding, has small hypodensity identified in the left cerebellum, likely an old infarct similar to prior exam, moderate mucosal thickening, bilateral ethmoidal sinuses, likely sinus disease. His chest x-ray showed that lungs showed normal lung volumes, improving patchy bilateral opacities. There is no pleural effusion or pneumothorax. The cardiomediastinal silhouette is normal. The great vessels of the thorax are normal. Bones and soft tissues are within normal range. The patient was admitted with alcohol withdrawal seizures. He was COVID positive. He was started on Keppra and did receive alcohol withdrawal treatment. PAST MEDICAL HISTORY: Significant for chronic alcoholism and previous history of alcohol-induced pancreatitis and has seizure disorders every time he attempts to quit drinking. PAST SURGICAL HISTORY: Significant for cyst removed from his neck. ALLERGIES: HE IS APPARENTLY ALLERGIC TO AUGMENTIN. MEDICATIONS: The patient is not on any medication at home. The patient was actually on levofloxacin, chlordiazepoxide and lorazepam. FAMILY HISTORY: Noncontributory. SOCIAL HISTORY: He is , has one son. He smokes a pack a day, drinks 2 beers a day according to him. 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 REVIEW OF SYSTEMS: As per history of present illness. PHYSICAL EXAMINATION: GENERAL: On arrival to the Emergency Room, he looked well and was clearly in no apparent respiratory distress. There was no pallor, jaundice, or cyanosis. No lymphadenopathy, no thyromegaly, no jugular venous distention. No limb edema. VITAL SIGNS: His heart rate was 102, blood pressure was 110/75, temperature was 97.8, respiratory rate was 18 and oxygen saturation was 89% on 2 liters of oxygen and that has improved to 98% when we started oxygen. HEAD, EYES, EARS, NOSE AND THROAT: Normocephalic, atraumatic, in particular did not bite his tongue. NECK: Supple. HEART: Normal first and second heart sounds. No gallop, rub or murmur. CHEST: Showed central trachea, equal bilateral chest expansion and air entry, vesicular breath sounds with crepitation mostly on the right side posteriorly. I could not appreciate any rhonchi. ABDOMEN: Distended, soft, nontender. NEUROLOGIC: He was awake, alert, responding appropriately. All his cranial nerves are intact. He moves extremities without difficulty. LABORATORY DATA: While in the Emergency Room, he has had lab work as well as imaging studies. His lab work showed a white cell count of 8400, hemoglobin 15.8, hematocrit 45, MCV 92 and platelet count 355,000 with an automated differential showed 68% polymorphs, 16% lymphocytes, 11% monocytes. His chemistry showed a serum sodium 131, potassium 3.1, chloride 27, anion gap of 11, BUN 3, creatinine 0.8. Estimated GFR was 107 mL per minute. His glucose 115, calcium was 9.1, magnesium was 1.6. Total bilirubin, AST, ALT, alkaline phosphatase were normal. His total protein was 6.8, albumin was 2.6, and lipase was 35. His coronavirus by PCR was positive. His CT scan of the head showed a small hypodensity identified in the left cerebellum, likely old infarct similar to prior examination. No evidence of acute intracranial hemorrhage, no extraaxial fluid collection, no mass effect or midline shift. Ventricular size is appropriate. Basal cisterns are patent. No fractures identified. Guzman-white differentiation is preserved. Globes and orbits are within normal limits. Moderate mucosal thickening, bilateral ethmoidal sinuses. His chest x-ray showed the patient has normal lung volumes with improving patchy bilateral opacities. The cardiomediastinal silhouette is normal. The great vessels of the thorax are normal. The bones and soft tissues are within normal limits. ASSESSMENT AND PLAN: In summary, this is a 40-year-old male patient who was admitted with alcohol withdrawal seizures. He was COVID positive by PCR. He also seemed to have pneumonia, likely community-acquired pneumonia as the infiltrates are definitely improved on the chest x-ray done yesterday compared to one done on . My plan is to continue with Keppra, alcohol withdrawal. Continue with levofloxacin and replete his sodium and potassium as well as magnesium. SEAMUS/JOSE/МАРИНА DR: Noah TID: [id number]
[2021-05-07] MEDS ORDERED: ACETAMINOPHEN 325 MG TABLET PO ONE ×2 (18:17)
[2021-05-07] MEDS ORDERED: NICOTINE 21MG PATCH. TD SCH (21:00)
[2021-05-07] MEDS ORDERED: MAGNESIUM OXIDE 400 MG TABLET PO SCH (21:00)
--- NOTE | 2021-05-07 21:06 | PN ---
DATE: 05/07/2021 SUBJECTIVE: The patient is resting, slightly propped up in bed, in no apparent respiratory distress. He is awake, alert. On questioning him, he stated that he is feeling generally much better. He has no further episodes of seizures. He continued to have poor appetite, and loss of taste and smell, has had no more diarrhea, has occasional episodes of cough, but denied any chills, rigors or fever or shortness of breath. PHYSICAL EXAMINATION: GENERAL: When I examined him, he looked well. Definitely no pallor, jaundice, or cyanosis. No lymphadenopathy, no thyromegaly, no jugular venous distention. No lower limb edema. VITAL SIGNS: Her heart rate was 74, blood pressure is 103/80, temperature was 98, respiratory rate was 18 and oxygen saturation was 98% on 2 liters of oxygen. HEAD, EYES, EARS, NOSE, AND THROAT: Normocephalic, atraumatic. NECK: Supple. HEART: Showed normal first and second heart sounds, no gallop or murmur. CHEST: Showed central trachea, equal bilateral chest expansion, air entry, vesicular breath sounds. I could not really appreciate any crepitation or rhonchi. ABDOMEN: Soft, nontender. NEUROLOGIC: He was grossly intact. His intake and output incompletely recorded. LABORATORY DATA: This morning showed a serum sodium 133, potassium 3.1, chloride 96, bicarbonate 29, anion gap of 8, BUN 4, creatinine 0.5. Estimated GFR was 184, glucose 104, calcium was 8.9. ASSESSMENT: 1. Chronic alcoholism. 2. Alcohol withdrawal seizures. 3. COVID-19 infection. 4. Probably community-acquired pneumonia. 5. Hyponatremia. 6. Hypokalemia. PLAN: My plan is to continue with Keppra. I will cut down the dose to 500 mg IV twice a day. I will replenish his magnesium with 2 grams of magnesium sulfate. I changed his IV fluid to normal saline with 40 mEq of potassium chloride, meanwhile, continue with alcohol withdrawal protocol. I will repeat all his lab work tomorrow and hopefully discharge him home. ROSENDO DR: Noah TID: [id number]
[2021-05-07 21:12] VITALS: BP 113/79
[2021-05-08] MEDS: POTASSIUM CL 40MEQ IN 0.9%NACL 1,000 ML IV SCH (00:17)
[2021-05-08 06:12] VITALS: BP 126/89
[2021-05-08 07:06] LABS: ALBUMIN 2.5 g/dL (3.4-5.0); ALBUMIN/GLOBULIN RATIO 0.7 (1.0-1.7); CALCIUM 8.7 mg/dL (8.5-10.1); CREATININE 0.5 mg/dL (0.7-1.3); GFR 184.2; TOTAL BILIRUBIN 0.4 mg/dL (0.2-1.0); TOTAL PROTEIN 6.3 g/dL (6.4-8.2)
[2021-05-08] MEDS ORDERED: LACTOBACILLUS RHAMNOSUS GG 1 CAPSULE. PO SCH (09:00)
--- NOTE | 2021-05-08 09:11 | DS ---
DATE OF DISCHARGE: 05/08/2021 ATTENDING PHYSICIAN: Dr. Song. FINAL DISCHARGE DIAGNOSES: 1. Alcohol withdrawal seizures. 2. Chronic alcoholism. 3. Recent COVID pneumonia. 4. Hyponatremia, corrected. 5. Hypokalemia. 6. Underlying depression. HISTORY OF PRESENT ILLNESS: The patient is a 40-year-old gentleman admitted with alcohol withdrawal seizures. He is a chronic alcoholic. He is depressed and has been treating himself. He does not have a primary care physician. PHYSICAL EXAMINATION: Please see the dictated note. PERTINENT LABORATORY AND X-RAY STUDIES: Admission hemoglobin was 15.8 g/dL with a white count of 8400. Chemistry panel showed a potassium on admission of 3.1 mEq/L replaced up to 4.0 mEq/L. Creatinine is stable at 0.5 mg/dL. Cardiac enzymes were negative. Nonfasting blood sugar 102. Transaminases were normal. Serology was positive for coronavirus. He was not symptomatic. COURSE IN THE HOSPITAL: The patient was admitted, started on Keppra intravenously. He was sober. Diet was advanced. He had no respiratory symptoms. Oxygen saturation adequate on room air. By the third hospital day, when I saw him, his vital signs were quite stable. He was afebrile. Lungs were clear. Blood pressure was 126/89 and oxygen saturation was maintained on room air. At this time, he is ready for discharge. I suggest that he does not drive a vehicle. Since he does not own a car, the point is moot. I recommended 30 days of Keppra 1000 mg b.i.d. Whether or not gets this filled remains to be seen. Strong encouragement to avoid further alcohol use. Whether or not he will quit drinking remains to be seen. I did continue his Levaquin 500 mg p.o. daily for 6 more days. In addition, he wanted something for sleep. I recommended Restoril 30 mg at bedtime. I gave him 20 pills, with no refills. In order to treat the underlying depression, insomnia and other symptoms, he will need to find a primary care doctor. I explained this in great detail to him. The patient was then discharged from our hospital in stable condition with explicit drug and followup care. Total discharge time 41 minutes. ALISSON/MARGAUX DR: ALISSON/xavi TID: [id number]
--- NOTE | 2021-05-08 10:24 | NUR ---
NURSING NOTE DISCHARGE PT DISCHARGED HOME VIA AMBULATION PICKED UP BY MOM. PT GIVEN WRITTEN AND VERBAL DISCHARGE INSTRUCTIONS. SCRIPTS GIVEN TO PT. PT GIVEN EDUCATION ABOUT ALCOHOL WITHDRAWAL, SEIZURE PRECAUTIONS AND MEDICATIONS, COVID ISOLATION. PT NOT INTERESTED IN DISCHARGE EDUCATION. DAMIAN MICHELLE.
[2021-05-12] MEDS ORDERED: FOLIC ACID 1 MG TABLET PO SCH (09:00)
[2021-05-12] MEDS ORDERED: THIAMINE 100 MG TABLET. PO SCH (09:00)
[2021-05-12] MEDS ORDERED: MULTIVITAMIN with MINERAL TABLET. PO SCH (09:00)
== END 2021-05-08 10:00 | disposition home or self-care (01) | DRG 100 ==
LOC: ER 18:31 → 1 SOUTH 20:00
PROVIDERS: ADMIT Hospitalist; ATTEND Hospitalist
DX: R56.9 Unspecified convulsions (principal); U07.1 COVID-19; E87.1 Hypo-osmolality and hyponatremia; F10.239 Alcohol dependence with withdrawal, unspecified; F12.90 Cannabis use, unspecified, uncomplicated; E87.6 Hypokalemia; F17.210 Nicotine dependence, cigarettes, uncomplicated; F32.9 Major depressive disorder, single episode, unspecified; G47.00 Insomnia, unspecified; Z88.0 Allergy status to penicillin
CPT/HCPCS: 36415; 70450; 71045; 80048; 80053; 83690; 83735; 84484; 85025; 87426; 93005; 96361; 96374; J1953; J1956; J2060; J3475; J7120; U0003; 99285-25